=== PATIENT | female | born 1960 | race Caucasian/White ===

== ENCOUNTER → 2020-11-07 08:45 | Outpatient (CLI) | payer OTHER, SELFPAY ==
--- NOTE | ~2020-11-07 | CT_ITS ---
EXAMINATION: CT sinus wo con DATE: 11/07/2020 09:01 INDICATION: Deviated nasal septum TECHNIQUE: Computed tomography (CT) of the paranasal sinuses was performed without intravenous contra st. The dose-length product (DLP) was 288.85 mGy-cm. Iterative reconstruction was used. COMPARISON: None FINDINGS: There is normal development and pneumatization of the paranasal sinuses. There are 4.5 mm o f leftward deviation of the nasal septum. The frontal, sphenoid, ethmoid, and maxillary sinuses are c lear. The bilateral ostiomeatal complexes are patent. Visualized soft tissues are unremarkable. IMPRESSION: 1. 4.5 mm of leftward deviation of the nasal septum. Reviewed, dictated and finalized at location A.
== END ==
PROVIDERS: PCP Family Medicine; Visit Provider Physician Assistant Medical
DX: J34.2 Deviated nasal septum (principal)
CPT/HCPCS: 70486

== ENCOUNTER 2020-12-01 17:43 | Outpatient (CLI) | payer OTHER, SELFPAY ==
--- NOTE | ~2020-12-01 | MM_ITS ---
EXAMINATION: MM screening kavita BI w marvin HISTORY: Screening mammogram TECHNIQUE: Craniocaudal and mediolateral oblique 3-D tomosynthesis images were obtained and synthetic 2-D images were generated. CAD analysis was submitted and interpreted. COMPARISON: 09/16/2017, 09/12/2017, 01/28/2017, 01/17/2017 BREAST PARENCHYMAL COMPOSITION: The breasts are heterogeneously dense, which may obscure small masses . FINDINGS: RIGHT BREAST: Stable architectural distortion in the upper outer quadrant of the breast is consistent with prior excisional biopsy. There is no evidence of suspicious mass, calcification, or architectur al distortion to suggest malignancy. There has been no significant interval change. LEFT BREAST: An asymmetry is present in the anterior/middle third of the lower breast 6.5 cm from the nipple on the mediolateral oblique view. IMPRESSION: 1. Left breast asymmetry 2. Additional mammographic views and possible breast ultrasound are recommended. BI-RADS Category 0: Incomplete: Needs additional imaging evaluation. Reviewed, dictated and finalized at location A. IMPRESSION: 1. Left breast asymmetry 2. Additional mammographic views and possible breast ultrasound are recommended . BI-RADS Category 0: Incomplete: Needs additional imaging evaluation.
== END 2020-12-01 17:44 | disposition home or self-care (01) ==
LOC: ANHIMG 17:43
PROVIDERS: PCP Family Medicine; Visit Provider Obstetrics & Gynecology
DX: Z12.31 Encounter for screening mammogram for malignant neoplasm of breast (principal); R92.8 Other abnormal and inconclusive findings on diagnostic imaging of breast
CPT/HCPCS: 77063; 77067

== ENCOUNTER 2020-12-15 13:15 | Outpatient (CLI) | payer OTHER, SELFPAY ==
--- NOTE | ~2020-12-15 | MMUS_ITS ---
EXAMINATION: MM diagnostic mammo unilat LT, US breast LT complete HISTORY: Follow-up left breast asymmetry TECHNIQUE: Additional 3-D tomosynthesis images of the left breast were performed and synthetic 2-D im ages were generated. CAD analysis was submitted and interpreted. High resolution complete left breast ultrasound was performed. COMPARISON: Comparison to multiple prior studies sequentially, with oldest reviewed study dated 08/26. BREAST PARENCHYMAL COMPOSITION: The breasts are heterogenously dense, which may obscure small masses. FINDINGS: MAMMOGRAPHIC FINDINGS: There are no suspicious masses, calcifications or architectural distortion in the left breast to sugg est malignancy. ULTRASOUND: At 11:00, 6 cm from the nipple, there is a 3 mm cyst. No other discrete masses are identified. IMPRESSION: 1. No evidence for malignancy in the left breast. 2. Routine yearly screening mammogram and regular clinical breast examination are recommended. BI-RADS Category 2: Benign finding(s). Reviewed, dictated and finalized at location A. IMPRESSION: 1. No evidence for malignancy in the left breast. 2. Routine yearly screening mammogram and regular clinical breast examination a re recommended. BI-RADS Category 2: Benign finding(s).
== END 2020-12-15 13:16 | disposition home or self-care (01) ==
PROVIDERS: PCP Family Medicine; Visit Provider Obstetrics & Gynecology
DX: R92.8 Other abnormal and inconclusive findings on diagnostic imaging of breast (principal)
CPT/HCPCS: 76641; 77065

== ENCOUNTER 2022-09-26 01:09 | Day surgery (SDC) | payer OTHER, SELFPAY ==
--- NOTE | 2022-09-25 15:01 | PM.HPGS ---
History of Present Illness History of Present Illness Consent: Risks, benefits, and alternatives have been discussed and questions answered. Patient agrees to proceed with procedure. Chief complaint: neoplasm screening Narrative: Lin Kwan is a 62 year old female referred for colon cancer screening. I had seen her 5 years ago for dysphagia and she was found to have a Schatzki's ring. Review of Systems Review of Systems: All systems reviewed & are unremarkable except as noted in HPI and below PMFSH Past Medical History Medical History Adult BMI 37.0-37.9 kg/sq m BMI 32.0-32.9,adult Family History Family History Sibling Family history of coronary artery disease Father Family history of malignant neoplasm of urinary bladder Other Family history of arthritis Social History Social History Smoking status: Never smoker Alcohol intake: never Substance use: never Substance use type: does not use Living arrangements: with family Spiritual care concerns: No Meds Home Medications and Allergies Home Medications Medication Instructions Recorded Confirmed Type alprazolam 0.25 mg tablet (Xanax) 0.25 mg PO TID PRN anxiety #30 tabs 04/19/21 09/10/22 Rx levothyroxine 137 mcg tablet 137 mcg PO DAILY #30 tabs 06/26/22 09/10/22 Rx (Synthroid) liothyronine 5 mcg tablet 5 mcg PO BID 06/26/22 09/10/22 History omeprazole 40 mg capsule,delayed 40 mg PO DAILY #90 caps 06/26/22 09/10/22 Rx release escitalopram oxalate 20 mg tablet 20 mg PO DAILY #30 tabs 07/01/22 09/10/22 Rx (Lexapro) fluticasone propionate 50 2 spray intranasal BID PRN Allergy 09/10/22 09/10/22 History mcg/actuation nasal Symptoms spray,suspension (Flonase Allergy Relief) metformin 500 mg tablet,extended 500 mg PO DAILY 09/10/22 09/10/22 History release 24 hr Allergies Allergy/AdvReac Type Severity Reaction Status Date / Time aspirin Allergy Unknown Unknown Verified 09/26/22 09:19 SALICYLATES Allergy Unknown Hives / Uncoded 09/26/22 09:19 Red Face Exam Const: General: alert Orientation/consciousness: patient oriented x3 Resp: Auscultation: clear to auscultation bilaterally Cardio: Rhythm: regular rhythm GI: GI Palp: Yes Soft to palpation and No Tenderness to palpation present (GI) Neuro: General: patient oriented x3 Assessment and Plan Assessment and plan (1) Screening for colon cancer: Code(s): Z12.11 - Encounter for screening for malignant neoplasm of colon Status: Acute Assessment and Plan: Colonoscopy with possible biopsy or polypectomy or cautery or injection of substances.
[2022-09-26 09:20] VITALS: BP 134/73; PULSE 74; RESP 18; TEMP 36; O2SAT 100
[2022-09-26] MEDS: LACTATED RINGERS 1,000 ML 150 ML IV CONT (09:30)
--- NOTE | 2022-09-26 09:33 | P.PNAN_ITS ---
Anes - Initial Pre Proc Eval Procedure: Operation Date: 09/26/22 10:30 Proposed Procedures p Screening Colonoscopy - Nile Pedro MD Date/Time: 09/26/22 09:33 Surgeon: Nile Pedro MD Pre Op Diagnosis: neoplasm screening Patient Data Age: 62 Gender: F Height: 1.65 m Weight: 84.8 kg Last Vital Signs Temp 36.0 C L 09/26/22 09:20 Pulse 74 09/26/22 09:20 Resp 18 09/26/22 09:20 BP 134/73 09/26/22 09:20 Pulse Ox 100 09/26/22 09:20 O2 Del Method Room Air 09/26/22 09:20 Allergies Allergy/AdvReac Type Severity Reaction Status Date / Time aspirin Allergy Unknown Unknown Verified 09/26/22 09:19 SALICYLATES Allergy Unknown Hives / Uncoded 09/26/22 09:19 Red Face Home Medications Medication Instructions Recorded Confirmed Type alprazolam 0.25 mg tablet (Xanax) 0.25 mg PO TID PRN anxiety #30 tabs 04/19/21 09/10/22 Rx levothyroxine 137 mcg tablet 137 mcg PO DAILY #30 tabs 06/26/22 09/10/22 Rx (Synthroid) liothyronine 5 mcg tablet 5 mcg PO BID 06/26/22 09/10/22 History omeprazole 40 mg capsule,delayed 40 mg PO DAILY #90 caps 06/26/22 09/10/22 Rx release escitalopram oxalate 20 mg tablet 20 mg PO DAILY #30 tabs 07/01/22 09/10/22 Rx (Lexapro) fluticasone propionate 50 2 spray intranasal BID PRN Allergy 09/10/22 09/10/22 History mcg/actuation nasal Symptoms spray,suspension (Flonase Allergy Relief) metformin 500 mg tablet,extended 500 mg PO DAILY 09/10/22 09/10/22 History release 24 hr Patient hx anesthesia problems: none Family hx anesthesia problems: none Results Review: All pre-operative results and documents have been reviewed as part of the pre- operative evaluation. [facility] Past Medical History Medical History Adult BMI 37.0-37.9 kg/sq m BMI 32.0-32.9,adult Family History Family History Sibling Family history of coronary artery disease Father Family history of malignant neoplasm of urinary bladder Other Family history of arthritis Social History Social History Smoking status: Never smoker Alcohol intake: never Substance use: never Substance use type: does not use Living arrangements: with family Spiritual care concerns: No Anes - Eval Final PreProcedure Day of Procedure 09/26/22 09:33 Patient weight: obese Heart: regular rate and rhythm Lungs: clear to auscultation and normal air movement Airway: Mallampati scale class II Neurological: alert and oriented Last oral intake: >/= 8 hours ASA classification: III Emergent: no Anesthetic plan: proceed Anesthesia type and monitoring: general GIVS Results Review: All pre-operative results and documents have been reviewed as part of the pre- operative evaluation. Informed Consent: The patient's anesthetic plan and its attendant risks and benefits were discussed with the patient/family/POA. Questions were solicited and answers provided to the satisfaction of the patient/family/POA.
[2022-09-26 09:34] LABS: Glucose Point of Care 104 mg/dl (65-105)
[2022-09-26 10:02] VITALS: BP 121/74; PULSE 66; RESP 19; O2SAT 100
[2022-09-26 10:12] VITALS: BP 124/76; PULSE 64; RESP 16; O2SAT 100
[2022-09-26 10:22] VITALS: BP 138/89; PULSE 66; RESP 19; O2SAT 100
== END 2022-09-26 10:29 | disposition home or self-care (01) ==
PROVIDERS: PCP Family Medicine; Visit Provider Internal Medicine Gastroenterology
PROC: 0DJD8ZZ Inspection of Lower Intestinal Tract, Via Natural or Artificial Opening Endoscopic (ICD-10-PCS; CPT 45378; principal; 2022-09-26 10:30)
DX: Z12.11 Encounter for screening for malignant neoplasm of colon (principal); K64.8 Other hemorrhoids; K57.30 Diverticulosis of large intestine without perforation or abscess without bleeding; Z79.84 Long term (current) use of oral hypoglycemic drugs; E66.9 Obesity, unspecified; Z68.31 Body mass index [BMI] 31.0-31.9, adult
CPT/HCPCS: 45378; 82948; J2704; J7120

== ENCOUNTER 2023-02-05 09:27 | Emergency (ER) | payer OTHER, SELFPAY ==
[2023-02-05 09:27] VITALS: BP 157/96; PULSE 85; RESP 20; O2SAT 100
[2023-02-05 09:28] VITALS: BP 157/96; PULSE 85; RESP 20; TEMP 36.3; O2SAT 100
--- NOTE | 2023-02-05 09:35 | ED.GENADULT ---
HPI - General Adult General Chief complaint: Unspecified Stated complaint: Foreign Body in Throat/ Time Seen by Provider: 02/05/23 09:30 Source: patient and RN notes reviewed Mode of arrival: ambulatory Limitations: no limitations History of Present Illness HPI narrative: 63 y/o female with hx hiatal hernia presented for c/o piece of apple lodged in throat since 0800. States it feels like the piece is at the sternal notch area. Endorses water comes back up after swallowing normal amounts, but small sips stay down. States she has had this happen in the past with foods, but has always been able to get the food out. States she has attempted to induce vomiting and manually remove the apple without success. Denies seeking evaluation for the hiatal hernia. Does not have GI specialist. Denies abdominal pain, n/v/d/f/c. Patient is talking and maintaining secretions. Related Data Home Medications Medication Instructions Recorded Confirmed liothyronine 5 mcg tablet 5 mcg PO BID 06/26/22 02/05/23 fluticasone propionate 50 2 spray intranasal BID PRN Allergy 09/10/22 02/05/23 mcg/actuation nasal Symptoms spray,suspension (Flonase Allergy Relief) Allergies Allergy/AdvReac Type Severity Reaction Status Date / Time salicylates Allergy Intermediate Hives Verified 02/05/23 09:46 aspirin Allergy Unknown Unknown Verified 02/05/23 09:46 Review of Systems Review of Systems: CONSTITUTIONAL: Denies body aches, fever, chills ENT: Endorses lodged FB in throat; Denies rhinorrhea, congestion CARDIOVASCULAR: Denies chest pain, palpitations, or edema. RESPIRATORY: Denies cough or dyspnea. GASTROINTESTINAL: Denies abdominal pain, nausea, vomiting, diarrhea GENITOURINARY: Denies dysuria, hematuria, or CVA tenderness. SKIN: Denies rash, itching, or wounds. MUSCULOSKELETAL: Denies back pain, joint pain, or myalgia. NEUROLOGIC: Denies headache, numbness, tingling, or weakness. All systems reviewed & are unremarkable except as noted in HPI and below PMFSH Past Medical History Medical History Adult BMI 37.0-37.9 kg/sq m BMI 32.0-32.9,adult BMI greater than 30 Family History Family History Sibling Family history of coronary artery disease Father Family history of malignant neoplasm of urinary bladder Other Family history of arthritis Social History Social History Smoking status: Never smoker Alcohol intake: never Substance use: never Substance use type: does not use Living arrangements: with family Spiritual care concerns: No Comments At time of signature, I have reviewed and agree with nursing past medical, surgical, social and family history unless otherwise noted. Please see nursing chart for further information. There is no relevant family history pertinent to the presenting complaint Exam Narrative: GENERAL: Well-appearing, and in no acute distress. EYES: EOMI. Conjunctivae normal. ENT: Mucous membranes pink and moist. No visible FB in airway. Maintaining secretions. CHEST: No respiratory distress, no wheezing; Clear to auscultation. Speaking full sentences without difficulty. HEART: Regular rate and rhythm. No murmur appreciated. Normal peripheral pulses. ABDOMEN: abd soft, nondistended, normal active bowel sounds. Nontender abdomen. Spitting out clear liquid . EXTREMITIES: Normal range of motion. No edema. SKIN: Warm, dry, no rash. Capillary refill normal. Normal skin turgor. NEURO: No focal deficits. Alert and oriented x3. PSYCH: Normal affect. Course Course Emergency Course: Patient is aware of diagnosis, understands and agrees to treatment plan. Anticipatory guidance given. Patient agrees to follow-up as directed and is aware of reasons to seek care at the emergency department. Portions of this record may have bee
[2023-02-05 09:47] VITALS: BP 157/96; PULSE 85; RESP 20; TEMP 36.3; O2SAT 100
== END 2023-02-05 09:52 | disposition short-term general hospital (02) ==
PROVIDERS: Emergency Provider Nurse Practitioner Family
DX: R13.10 Dysphagia, unspecified (principal); K21.9 Gastro-esophageal reflux disease without esophagitis; E11.9 Type 2 diabetes mellitus without complications; F41.9 Anxiety disorder, unspecified
CPT/HCPCS: 99212; G0463

== ENCOUNTER 2023-02-05 10:29 | Emergency (ER) | payer OTHER, SELFPAY ==
[2023-02-05 10:47] VITALS: BP 131/82; PULSE 83; RESP 18; TEMP 36.3; O2SAT 100
--- NOTE | 2023-02-05 13:23 | PC.NURSE ---
patient's problem has resolved. states that she is able to drink and swallow without difficulty. denies vomiting. advised to return if needed. patient verbalized understanding
== END 2023-02-05 13:23 | disposition left against medical advice (07) ==
DX: Z53.21 Procedure and treatment not carried out due to patient leaving prior to being seen by health care provider (principal)
CPT/HCPCS: 99199

== ENCOUNTER 2023-05-06 00:14 | Day surgery (SDC) | payer OTHER, SELFPAY ==
[2023-04-22 15:08] VITALS: BMI 30.8
--- NOTE | 2023-05-03 10:38 | SUR.PREOP ---
Patient called regarding upcoming procedure. Reviewed preop instructions, appointment times, and procedure prep.
--- NOTE | 2023-05-06 07:20 | PM.HPGS ---
History of Present Illness History of Present Illness Consent: Risks, benefits, and alternatives have been discussed and questions answered. Patient agrees to proceed with procedure. Chief complaint: Diaphragmatic hernia,GERD Narrative: Lin Kwan is a 63 year old female Was having increasing difficulty swallowing. She in fact had a food bolus caught for a few hours recently. She had gone to an urgent care center where she was told that they could not help her. She finally got relief after having gone to the emergency room when it passed on its own. She did have an esophageal stricture which was dilated about 5 years ago. Review of Systems Review of Systems: All systems reviewed & are unremarkable except as noted in HPI and below PMFSH Past Medical History Medical History Adult BMI 37.0-37.9 kg/sq m BMI 32.0-32.9,adult BMI greater than 30 Family History Family History Sibling Family history of coronary artery disease Father Family history of malignant neoplasm of urinary bladder Other Family history of arthritis Social History Social History Smoking status: Never smoker Alcohol intake: never Substance use: never Substance use type: does not use Living arrangements: with family Spiritual care concerns: No Meds Home Medications and Allergies Home Medications Medication Instructions Recorded Confirmed Type alprazolam 0.25 mg tablet (Xanax) 0.25 mg PO TID PRN anxiety #30 tabs 04/19/21 05/06/23 Rx levothyroxine 137 mcg tablet 137 mcg PO DAILY #30 tabs 06/26/22 05/06/23 Rx (Synthroid) liothyronine 5 mcg tablet 5 mcg PO BID 06/26/22 05/06/23 History escitalopram oxalate 20 mg tablet 20 mg PO DAILY #30 tabs 07/01/22 05/06/23 Rx (Lexapro) fluticasone propionate 50 2 spray intranasal BID PRN Allergy 09/10/22 05/06/23 History mcg/actuation nasal Symptoms spray,suspension (Flonase Allergy Relief) omeprazole 40 mg capsule,delayed 40 mg PO DAILY #90 caps 02/19/23 05/06/23 Rx release cholecalciferol (vitamin D3) 25 25 mcg PO DAILY 04/22/23 05/06/23 History mcg (1,000 unit) tablet rosuvastatin 20 mg tablet (Crestor) 20 mg PO DAILY #30 tabs 05/04/23 05/06/23 Rx Allergies Allergy/AdvReac Type Severity Reaction Status Date / Time salicylates Allergy Intermediate Hives Verified 05/06/23 12:22 aspirin Allergy Unknown Unknown Verified 05/06/23 12:22 Exam Const: General: alert Orientation/consciousness: patient oriented x3 Resp: Auscultation: clear to auscultation bilaterally Cardio: Rhythm: regular rhythm GI: GI Palp: Yes Soft to palpation and No Tenderness to palpation present (GI) Neuro: General: patient oriented x3
[2023-05-06 12:15] VITALS: BP 139/80; PULSE 72; RESP 16; TEMP 36.9; O2SAT 100; BMI 32.9
--- NOTE | 2023-05-06 12:28 | WPDANESEPPF ---
Anes - Initial Pre Proc Eval Procedure: Operation Date: 05/06/23 13:30 Proposed Procedures p Esophagogastroduodenoscopy - Nile Pedro MD Date/Time: 05/06/23 12:28 Surgeon: Nile Pedro MD Pre Op Diagnosis: Diaphragmatic hernia,GERD Patient Data Age: 63 Gender: F Height: 1.65 m Weight: 89.8 kg Last Vital Signs Temp 98.4 F 05/06/23 12:15 Pulse 72 05/06/23 12:15 Resp 16 05/06/23 12:15 BP 139/80 05/06/23 12:15 Pulse Ox 100 05/06/23 12:15 O2 Del Method Room Air 05/06/23 12:15 Allergies Allergy/AdvReac Type Severity Reaction Status Date / Time salicylates Allergy Intermediate Hives Verified 05/06/23 12:22 aspirin Allergy Unknown Unknown Verified 05/06/23 12:22 Home Medications Medication Instructions Recorded Confirmed Type alprazolam 0.25 mg tablet (Xanax) 0.25 mg PO TID PRN anxiety #30 tabs 04/19/21 05/06/23 Rx levothyroxine 137 mcg tablet 137 mcg PO DAILY #30 tabs 06/26/22 05/06/23 Rx (Synthroid) liothyronine 5 mcg tablet 5 mcg PO BID 06/26/22 05/06/23 History escitalopram oxalate 20 mg tablet 20 mg PO DAILY #30 tabs 07/01/22 05/06/23 Rx (Lexapro) fluticasone propionate 50 2 spray intranasal BID PRN Allergy 09/10/22 05/06/23 History mcg/actuation nasal Symptoms spray,suspension (Flonase Allergy Relief) omeprazole 40 mg capsule,delayed 40 mg PO DAILY #90 caps 02/19/23 05/06/23 Rx release cholecalciferol (vitamin D3) 25 25 mcg PO DAILY 04/22/23 05/06/23 History mcg (1,000 unit) tablet rosuvastatin 20 mg tablet (Crestor) 20 mg PO DAILY #30 tabs 05/04/23 05/06/23 Rx Patient hx anesthesia problems: none Family hx anesthesia problems: none Results Review: All pre-operative results and documents have been reviewed as part of the pre-operative evaluation. [facility] Past Medical History Medical History Adult BMI 37.0-37.9 kg/sq m BMI 32.0-32.9,adult BMI greater than 30 Family History Family History Sibling Family history of coronary artery disease Father Family history of malignant neoplasm of urinary bladder Other Family history of arthritis Social History Social History Smoking status: Never smoker Alcohol intake: never Substance use: never Substance use type: does not use Living arrangements: with family Spiritual care concerns: No Anes - Eval Final PreProcedure Day of Procedure 05/06/23 12:28 Patient weight: normal Heart: regular rate and rhythm Lungs: clear to auscultation Airway: Mallampati scale class II Neurological: alert and oriented Last oral intake: >/= 8 hours ASA classification: III Emergent: no Anesthetic plan: proceed Anesthesia type and monitoring: general GIVS and standard monitoring Results Review: All pre-operative results and documents have been reviewed as part of the pre-operative evaluation. Informed Consent: The patient's anesthetic plan and its attendant risks and benefits were discussed with the patient/family/POA. Questions were solicited and answers provided to the satisfaction of the patient/family/POA.
[2023-05-06] MEDS: LACTATED RINGERS 1,000 ML 150 ML IV CONT (12:34)
[2023-05-06] MEDS: BENZOCAINE (*SP) 60 ML SPRAY CAN (HURRICAINE) 1 SPRAY MUCOUS MEM (13:05)
[2023-05-06 13:18] VITALS: BP 129/80; PULSE 80; RESP 20; O2SAT 100
[2023-05-06 13:28] VITALS: BP 125/71; BP 139/91; PULSE 72; PULSE 73; RESP 18; O2SAT 100
== END 2023-05-06 13:40 | disposition home or self-care (01) ==
PROVIDERS: PCP Family Medicine; Visit Provider Internal Medicine Gastroenterology
PROC: 0DJ08ZZ Inspection of Upper Intestinal Tract, Via Natural or Artificial Opening Endoscopic (ICD-10-PCS; CPT 43235; principal; 2023-05-06 13:30)
DX: K21.00 Gastro-esophageal reflux disease with esophagitis, without bleeding (principal); K22.2 Esophageal obstruction; Z80.52 Family history of malignant neoplasm of bladder; Z82.49 Family history of ischemic heart disease and other diseases of the circulatory system
CPT/HCPCS: 43249; 43239; 88305; C1726; J2704; J7120

== ENCOUNTER 2023-08-12 03:52 | Day surgery (SDC) | payer OTHER, SELFPAY ==
[2023-07-18 14:13] VITALS: BMI 31.8
--- NOTE | 2023-08-09 12:31 | SUR.PREOP ---
Patient called regarding upcoming procedure. Reviewed preop instructions, appointment times, and procedure prep.
--- NOTE | 2023-08-09 17:12 | PM.HPGS ---
History of Present Illness History of Present Illness Consent: Risks, benefits, and alternatives have been discussed and questions answered. Patient agrees to proceed with procedure. Chief complaint: Esophageal stricture, gastric polyp Narrative: Lin Kwan is a 63 year old female who a few months ago was found to have a severe esophageal stricture. It was after she had a food bolus impaction. She returns now for further treatment. Review of Systems Review of Systems: All systems reviewed & are unremarkable except as noted in HPI and below PMFSH Past Medical History Medical History Adult BMI 37.0-37.9 kg/sq m BMI 32.0-32.9,adult BMI greater than 30 Family History Family History Sibling Family history of coronary artery disease Father Family history of malignant neoplasm of urinary bladder Other Family history of arthritis Social History Social History Smoking status: Never smoker Alcohol intake: never Substance use: never Substance use type: does not use Living arrangements: with family Spiritual care concerns: No Meds Home Medications and Allergies Home Medications Medication Instructions Recorded Confirmed Type alprazolam 0.25 mg tablet (Xanax) 0.25 mg PO TID PRN anxiety #30 tabs 04/19/21 07/18/23 Rx levothyroxine 137 mcg tablet 137 mcg PO DAILY #30 tabs 06/26/22 07/18/23 Rx (Synthroid) liothyronine 5 mcg tablet 5 mcg PO BID 06/26/22 07/18/23 History escitalopram oxalate 20 mg tablet 20 mg PO DAILY #30 tabs 07/01/22 07/18/23 Rx (Lexapro) fluticasone propionate 50 2 spray intranasal BID PRN Allergy 09/10/22 07/18/23 History mcg/actuation nasal Symptoms spray,suspension (Flonase Allergy Relief) omeprazole 40 mg capsule,delayed 40 mg PO DAILY #90 caps 02/19/23 07/18/23 Rx release cholecalciferol (vitamin D3) 25 25 mcg PO DAILY 04/22/23 07/18/23 History mcg (1,000 unit) tablet rosuvastatin 20 mg tablet (Crestor) 20 mg PO DAILY #30 tabs 08/08/23 08/12/23 Rx Allergies Allergy/AdvReac Type Severity Reaction Status Date / Time salicylates Allergy Intermediate Hives Verified 08/12/23 08:55 aspirin Allergy Unknown Unknown Verified 08/12/23 08:55 Exam Const: General: alert Orientation/consciousness: patient oriented x3 Resp: Auscultation: clear to auscultation bilaterally Cardio: Rhythm: regular rhythm GI: GI Palp: Yes Soft to palpation and No Tenderness to palpation present (GI) Neuro: General: patient oriented x3 Assessment and Plan Assessment and plan (1) Schatzki's ring: Code(s): K22.2 - Esophageal obstruction Status: Acute Assessment and Plan: EGD with possible biopsy or dilatation or cautery.
[2023-08-12 08:56] VITALS: BP 140/83; PULSE 76; RESP 18; TEMP 36.3; O2SAT 100
[2023-08-12] MEDS: LACTATED RINGERS 1,000 ML 150 ML IV CONT (09:06)
--- NOTE | 2023-08-12 09:14 | P.PNAN_ITS ---
Anes - Initial Pre Proc Eval Procedure: Operation Date: 08/12/23 10:00 Proposed Procedures p Esophagogastroduodenoscopy - Nile Pedro MD Date/Time: 08/12/23 09:14 Surgeon: Nile Pedro MD Pre Op Diagnosis: Esophageal stricture, gastric polyp Patient Data Age: 63 Gender: F Height: 1.65 m Weight: 91.4 kg Last Vital Signs Temp 36.3 C L 08/12/23 08:56 Pulse 76 08/12/23 08:56 Resp 18 08/12/23 08:56 BP 140/83 08/12/23 08:56 Pulse Ox 100 08/12/23 08:56 O2 Del Method Room Air 08/12/23 08:56 Allergies Allergy/AdvReac Type Severity Reaction Status Date / Time salicylates Allergy Intermediate Hives Verified 08/12/23 08:55 aspirin Allergy Unknown Unknown Verified 08/12/23 08:55 Home Medications Medication Instructions Recorded Confirmed Type alprazolam 0.25 mg tablet (Xanax) 0.25 mg PO TID PRN anxiety #30 tabs 04/19/21 07/18/23 Rx levothyroxine 137 mcg tablet 137 mcg PO DAILY #30 tabs 06/26/22 07/18/23 Rx (Synthroid) liothyronine 5 mcg tablet 5 mcg PO BID 06/26/22 07/18/23 History escitalopram oxalate 20 mg tablet 20 mg PO DAILY #30 tabs 07/01/22 07/18/23 Rx (Lexapro) fluticasone propionate 50 2 spray intranasal BID PRN Allergy 09/10/22 07/18/23 History mcg/actuation nasal Symptoms spray,suspension (Flonase Allergy Relief) omeprazole 40 mg capsule,delayed 40 mg PO DAILY #90 caps 02/19/23 07/18/23 Rx release cholecalciferol (vitamin D3) 25 25 mcg PO DAILY 04/22/23 07/18/23 History mcg (1,000 unit) tablet rosuvastatin 20 mg tablet (Crestor) 20 mg PO DAILY #30 tabs 08/08/23 08/12/23 Rx Patient hx anesthesia problems: none Family hx anesthesia problems: none Results Review: All pre-operative results and documents have been reviewed as part of the pre- operative evaluation. COUNTS INCLUDE 234 BEDS AT THE [facility] Past Medical History Medical History Adult BMI 37.0-37.9 kg/sq m BMI 32.0-32.9,adult BMI greater than 30 Family History Family History Sibling Family history of coronary artery disease Father Family history of malignant neoplasm of urinary bladder Other Family history of arthritis Social History Social History Smoking status: Never smoker Alcohol intake: never Substance use: never Substance use type: does not use Living arrangements: with family Spiritual care concerns: No Anes - Eval Final PreProcedure Day of Procedure 08/12/23 09:14 Patient weight: obese Heart: regular rate and rhythm Lungs: clear to auscultation Airway: Mallampati scale class II Neurological: alert and oriented Last oral intake: >/= 8 hours ASA classification: III Emergent: no Anesthetic plan: proceed Anesthesia type and monitoring: general GIVS and standard monitoring Results Review: All pre-operative results and documents have been reviewed as part of the pre- operative evaluation. Informed Consent: The patient's anesthetic plan and its attendant risks and benefits were discussed with the patient/family/POA. Questions were solicited and answers provided to the satisfaction
[2023-08-12 10:00] VITALS: BP 114/68; PULSE 70; RESP 20; O2SAT 100
[2023-08-12 10:10] VITALS: BP 126/78; PULSE 67; RESP 17; O2SAT 100
[2023-08-12 10:20] VITALS: BP 140/86; PULSE 65; RESP 15; O2SAT 100
== END 2023-08-12 10:29 | disposition home or self-care (01) ==
PROVIDERS: PCP Family Medicine; Visit Provider Internal Medicine Gastroenterology
PROC: 0DJ08ZZ Inspection of Upper Intestinal Tract, Via Natural or Artificial Opening Endoscopic (ICD-10-PCS; CPT 43235; principal; 2023-08-12 10:00)
DX: K22.2 Esophageal obstruction (principal); K44.9 Diaphragmatic hernia without obstruction or gangrene; E66.9 Obesity, unspecified; Z68.33 Body mass index [BMI] 33.0-33.9, adult; Z82.49 Family history of ischemic heart disease and other diseases of the circulatory system; Z80.52 Family history of malignant neoplasm of bladder
CPT/HCPCS: 43249; 43255; C1726; J2704; J7120

== ENCOUNTER 2024-07-26 11:16 | Emergency (ER) | payer OTHER, SELFPAY ==
--- OUTSIDE RECORDS SUMMARY | 2024-07-26 11:18 | XMS_ITS | Clinical Summary ---
Author Organization [facility] [address] [place] Address [address] [place] [address] Care Team Providers Care Injection Molding Operator Name Role Phone Chao Nelson MD Primary Care Provider [phone] Dionna Kc MD Unavailable [phone] Ken Warner MD Unavailable [phone] Source Comments [facility],non-owned Affiliates and Associated Physician Practices is amultiple site organization consisting of ambulatory clinics and hospital sitesin [place], [place], [place] and [place]. This disclosure is being madepursuant to the Care Everywhere program and may not contain all information available regarding this patient. Last updated 18.[facility] [place] Allergies Active Allergy Reactions Criticality Noted Date Comments Aspirin Buffered 02/04/2012 Medications * Be aware that medications may not be up to date on this document. Alwaysverify current medications with the patient. Medication Sig Dispensed Refills Start Date End Date Status Multiple Vitamins-Minerals (MULTIVITAMIN & MINERAL PO) Take by mouth once daily. Active omeprazole (PRILOSEC) 40 MG capsule 2 06/30/2015 Active influenza quadrivalent vac (AFLURIA QUAD) 0.5 ML injection ADM 0.5ML IM UTD 0 04/17/2018 Active BOOSTRIX 5-2.5-18.5 LF-MCG/0.5 (7y+) injection ADM 0.5ML IM UTD 0 04/17/2018 Active RESTASIS 0.05 % ophthalmic suspension INSTILL 1 DROP INTO BOTH EYES BID 3 09/12/2018 Active ALPRAZolam (XANAX) 0.25 MG tablet TK 1 T PO TID PRF ANXIETY 09/16/2019 Active fluticasone propionate (FLONASE) 50 MCG/ACT nasal spray SHAKE LIQUID AND USE 2 SPRAYS IN EACH NOSTRIL TWICE DAILY 01/27/2021 Active b-complex-c capsule Take 1 (one) capsule by mouth once daily 02/09/2021 Active escitalopram (LEXAPRO) 20 MG tablet Take 20 mg by mouth once daily 01/27/2021 Active topiramate (Topamax) 25 MG tablet Take 2 (two) tablets by mouth once daily Take in the afternoon - evening hrs 180 tablet 3 05/01/2022 Active Cholecalciferol (Vitamin D3) 25 MCG (1000 UT) Take 1 (one) capsule by mouth once daily 90 capsule 3 10/15/2022 Active rosuvastatin (Crestor) 20 MG tablet Take 1 (one) tablet by mouth once daily 06/07/2023 Active levothyroxine (Synthroid) 137 MCG tabletIndications:H ypothyroidism Take 1 (one) tablet by mouth once daily Reasons: Underactive Thyroid 90 tablet 3 02/19/2024 Active Active Problems Problem Noted Date Diagnosed Date GERD (gastroesophageal reflux disease) 6 Pre-diabetes 08/31/2015 Dysphagia 08/23/2014 Weight gain 08/23/2014 Hypothyroidism, postablative 02/04/2012 Overview (08/31/2015): S/p SIMMS therapy 2002 Resolved Problems Problem Noted Date Diagnosed Date Resolved Date Diabetes mellitus type I 08/23/2016 Hyperthyroidism 02/04/2012 08/31/2015 Overview (02/04/2012): S/p SIMMS 131 therapy 2002 Hypothyroidism 01/23/2012 02/04/2012 Overview (03/17/2015): Family History Medical History Relation Name Comments Diabetes Daughter gestational Diabetes Father Neuropathy Father Arthritis - Rheumatoid Mother Cancer Mother blood Asthma Sister 2 CAD (Coronary Artery Disease) Neg Hx CVA Neg Hx Thyroid Disease Neg Hx Relation Name Status Comments Brother 1 Alive Brother 2 Alive Brother 3 Alive Daughter Father Mother Alive Sister 1 Alive Sister 2 Social History Tobacco Use Types Packs/Day Years Used Date Smoking Tobacco: Never Smokeless Tobacco: Never Tobacco Cessation:Counseling Given: Not Answered Alcohol Use Standard Drinks/Week Comments No 0 (1 standard drink = 0.6 oz pur e alcohol) Sex and Gender Information Value Date Recorded Sex Assigned at Not on file Gender Identity Not on file Sexual Orientation Not on file Last Filed Vital Signs Vital Sign Reading Time Taken Comments Blood Pressure 125/63 12/24/2022 2:25 PM CDT Pulse 82 05/01/2022 1:03 PM FITNESS PLAN COORDINATOR Temperature 36.4 C (97.5 F) 02/09/2021 9:33 AM CDT Respiratory Rate 20 02/09/2021 9:33 AM CDT Oxygen Saturation 97% 05/01/2022 1:03 PM FITNESS PLAN COORDINATOR Inhaled Oxygen Concentration - - Weight 88.9 kg (196 lb) 12/24/2022 2:25 PM CDT Height 165.1 cm (5' 5 ) 12/24/2022 2:25 PM CDT Body Mass Index 32.62 12/24/2022 2:25 PM CDT Plan of Treatment Upcoming Encounters Date Type Department Care Team (Late st Contact Info) Description 08/19/2024 1:40 PM FITNESS PLAN COORDINATOR Video Visit [facility] - Endocrinology [id number] [place] [address], [address] [place] [address] Dionna Kc MD [id number] [place] [address] [address] [place] [address] Health Maintenance Due Date Last Done Comments COLOGUARD (AGES 45-75) - COLON CA SCREENING 1962 COLON MONITORING 1962 COLONOSCOPY - COLON CA SCREENING 1962 CT COLONOGRAPHY - COLON CA SCREENING 1962 Colorectal Cancer Screening 1962 FIT - COLON CA SCREENING 1962 FLEX SIG - COLON CA SCREENING 1962 MAMMOGRAM 1962 HIV SCREENING 1977 HEPATITIS C SCREENING 01/07/1980 DTAP/TDAP/TD VACCINES (1 - Tdap) 1981 PNEUMOCOCCAL VACCINE 50+ (1 of 2 - PCV) 1981 PNEUMOCOCCAL VACCINE (1 of 2 - PCV) 1981 ZOSTER VACCINE (1 of 2) 01/12/2012 DIABETES-FOOT EXAM WITH MONOFILAMENT 08/30/2016 DIABETES-HGB A1C 12/26/2021 06/28/2021 Respiratory Syncytial Virus (RSV) Vaccine Pt: or over 60 yrs (1 - Risk 60-74 years 1-dose series) 2022 DIABETES-SERUM CREATININE 06/28/20222021, 01/12/2021, 11/27/2019, Additional history exists COVID-19 VACCINE ( season) 2024 INFLUENZA VACCINE (#1) 2024 DEPRESSION SCREENING 06/17/2024 DIABETES - URINE PROTEIN SCREENING 06/17/2024 06/28/2021 DIABETES RETINOPATHY SCREENING 06/28/2024 06/28/2022, 06/22/2021, 09/12/2018 HEPATITIS B VACCINE Aged Out No longe r eligible based on patient's age to complete this topic HIB VACCINE Aged Out No longer eligi ble based on patient's age to complete this topic HPV VACCINE Aged Out No longer eligi ble based on patient's age to complete this topic MENINGOCOCCAL (Group B) VACCINE Aged Out No longer eligible based on patient's age to complete this topic MENINGOCOCCAL VACCINE Aged Out No cass george eligible based on patient's age to complete this topic Procedures Procedure Name Priority Date/Time Associated Diagnosis Comments DIABETES EYE EXAM Routine 06/28/2022 MICROALB/CREAT RATIO URINE RANDOM PANEL 06/28/2021 7:18 AM FITNESS PLAN COORDINATOR COMPREHENSIVE METABOLIC PANEL 06/28/2021 7:18 AM FITNESS PLAN COORDINATOR HEMOGLOBIN A1C 06/28/2021 7:18 AM FITNESS PLAN COORDINATOR from Last 3 Months or Most Recently Relevant to Health Maintenance Results * DIABETES EYE EXAM (06/28/2022) Dionna Kc MD [facility] * MICROALB/CREAT RATIO URINE RANDOM PANEL (06/28/2021 7:18 AM FITNESS PLAN COORDINATOR) Creatinine Urine 134 20 - 275 mg/dL [facility] Microalbumin Urine 0.9 mg/dL [facility] Comment: Reference Range Not established Microalbumin/Creat inine Ratio 7 <30 mcg/mg creat [facility] Comment: The ADA defines abnormalities in albumin excretion as follows: Albuminuria Category Result (mcg/mg creatinine) Normal to Mildly increased <30 Moderately increased 30-299 Severely increased > OR = 300 The ADA recommends that at least two of three specimens collected within a 3-6 month period be abnormal before considering a patient to be within a diagnostic category. Test Performed at: [facility] [id number] [place] [address] EDGAR CLARK DO,MPH 06/28/2021 7:18 AM FITNESS PLAN COORDINATOR 06/28/2021 7:20 AM FITNESS PLAN COORDINATOR Dionna Kc MD LAB - URINE CHEM ISTRY ORDERABLES Performing Organization Address [facility] Co de Phone Number [address] [address] * (ABNORMAL) HEMOGLOBIN A1C (06/28/2021 7:18 AM FITNESS PLAN COORDINATOR) Hemoglobin A1c 5.9(H) <5.7 % of total Hgb [facility] Comment: REPORT COMMENT: FASTING:YES Test Performed at: [facility] [address] SARWAT ANGELES MD 06/28/2021 7:18 AM FITNESS PLAN COORDINATOR 06/28/2021 7:20 AM FITNESS PLAN COORDINATOR Dionna Kc MD LAB - CHEMISTRY ORDERABLES Performing Organization Address [facility] Co de Phone Number [address] [address] * (ABNORMAL) COMPREHENSIVE METABOLIC PANEL (06/28/2021 7:18 AM FITNESS PLAN COORDINATOR) Glucose 108(H) 65 - 99 mg/dL [facility] Comment: Fasting reference interval For someone without known diabetes, a glucose value between 100 and 125 mg/dL is consistent with prediabetes and should be confirmed with a follow-up test. BUN 18 7 - 25 mg/dL [facility] Creatinine 0.66 0.50 - 1.05 mg/dL [facility] Comment: For patients >49 years of age, the reference limit for Creatinine is approximately 13% higher for people identified as -Maltese. eGFR by MDRD 97 > OR = 60 mL/min/1 .73m2 [facility] eGFR by MDRD 112 > OR = 60 mL/min/1 .73m2 [facility] BUN/Creatinine Ratio NOT APPLICABLE 6 - 22 (calc) [facility] Sodium 141 135 - 146 mmol/L [facility] Potassium 4.3 3.5 - 5.3 mmol/L [facility] Chloride 104 98 - 110 mmol/L [facility] CO2 28 20 - 32 mmol/L [facility] Calcium 9.7 8.6 - 10.4 mg/dL [facility] Protein Total 6.6 6.1 - 8.1 g/dL [facility] Albumin 3.9 3.6 - 5.1 g/dL [facility] Globulin Total 2.7 1.9 - 3.7 g/dL (calc) [facility] Albumin/Globulin Ratio 1.4 1.0 - 2.5 (calc) [facility] Bilirubin Total 0.3 0.2 - 1.2 mg/dL [facility] Alkaline Phosphatase 74 37 - 153 U/L [facility] AST 11 10 - 35 U/L [facility] ALT 10 6 - 29 U/L [facility] Comment: Test Performed at: [facility] [address] [place] [address] EDGAR CLARK DO,MPH 06/28/2021 7:18 AM FITNESS PLAN COORDINATOR 06/28/2021 7:20 AM FITNESS PLAN COORDINATOR Dionna Kc MD LAB - CHEMISTRY ORDERABLES Performing Organization Address City/State/[facility] Co de Phone Number [facility] [address] [place] [address] from Last 3 Months or Most Recently Relevant to Health Maintenance Care Teams Injection Molding Operator Relationship Specialty Start Date End Date Chao Nelson MD [address] [place] [address] PCP - General 02/04/12 [place] [address] [address] Endocrinology 08/30/16 Ken Warner MD [address] [address] Obstetrics and Gynecology 05/27/19
--- OUTSIDE RECORDS SUMMARY | 2024-07-26 11:18 | XMS_ITS | Patient Health Summary ---
Author Organization [facility] Address [address] [place] [address] Care Team Providers Care Laser Beam Cutter Name Role Phone Chao Nelson MD Primary Care Provider [phone] Dionna Kc MD Unavailable [phone] Ken Warner MD Unavailable [phone] Note from [facility],non-owned Affiliates and Associated Physician Practices is amultiple site organization consisting of ambulatory clinics and hospital sitesin [place], [place], [place] and [place]. This disclosure is being madepursuant to the Care Everywhere program and may not contain all information available regarding this patient. Last updated 18.[facility] Allergies * Aspirin Buffered Medications * Be aware that medications may not be up to date on this document. Alwaysverify current medications with the patient. * Multiple Vitamins-Minerals (MULTIVITAMIN & MINERAL PO) Take by mouth once daily. * omeprazole (PRILOSEC) 40 MG capsule(Started 06/30/2015) 2 refills left * influenza quadrivalent vac (AFLURIA QUAD) 0.5 ML injection(Started 04/17/2018) ADM 0.5ML IM UTD * BOOSTRIX 5-2.5-18.5 LF-MCG/0.5 (7y+) injection(Started 04/17/2018) ADM 0.5ML IM UTD * RESTASIS 0.05 % ophthalmic suspension(Started 09/12/2018) INSTILL 1 DROP INTO BOTH EYES BID 3 refills left * ALPRAZolam (XANAX) 0.25 MG tablet(Started 09/16/2019) TK 1 T PO TID PRF ANXIETY * fluticasone propionate (FLONASE) 50 MCG/ACT nasal spray(Started 01/27/2021) SHAKE LIQUID AND USE 2 SPRAYS IN EACH NOSTRIL TWICE DAILY * b-complex-c capsule(Started 02/09/2021) Take 1 (one) capsule by mouth once daily * escitalopram (LEXAPRO) 20 MG tablet(Started 01/27/2021) Take 20 mg by mouth once daily * topiramate (Topamax) 25 MG tablet(Started 05/01/2022) Take 2 (two) tablets by mouth once daily Take in the afternoon - evening hrs 3 refills by 05/01/2023 * Cholecalciferol (Vitamin D3) 25 MCG (1000 UT)(Started 10/15/2022) Take 1 (one) capsule by mouth once daily 3 refills by 10/15/2023 * rosuvastatin (Crestor) 20 MG tablet(Started 06/07/2023) Take 1 (one) tablet by mouth once daily * levothyroxine (Synthroid) 137 MCG tablet(Started 02/19/2024) Take 1 (one) tablet by mouth once daily Reasons: Underactive Thyroid 3 refills by 02/18/2025 Active Problems Problem Noted Date Diagnosed Date GERD (gastroesophageal reflux disease) 6 Pre-diabetes 08/31/2015 Dysphagia 08/23/2014 Weight gain 08/23/2014 Hypothyroidism, postablative 02/04/2012 Resolved Problems Problem Noted Date Diagnosed Date Resolved Date Diabetes mellitus type I 08/23/2016 Hyperthyroidism 02/04/2012 08/31/2015 Hypothyroidism 01/23/2012 02/04/2012 Social History Tobacco Use Types Packs/Day Years [...] PM CDT Pulse 82 05/01/2022 1:03 PM CELL ROOM OPERATOR Temperature 36.4 C (97.5 F) 02/09/2021 9:33 AM CDT Respiratory Rate 20 02/09/2021 9:33 AM CDT Oxygen Saturation 97% 05/01/2022 1:03 PM CELL ROOM OPERATOR Inhaled Oxygen Concentration - - Weight 88.9 kg (196 lb) 12/24/2022 2:25 PM CDT Height 165.1 cm (5' 5 ) 12/24/2022 2:25 PM CDT Body Mass Index 32.62 12/24/2022 2:25 PM CDT Procedures * DIABETES EYE EXAM(Performed 06/28/2022) * HEMOGLOBIN A1C(Performed 06/28/2021) * TSH(Performed 06/28/2021) * T4 FREE(Performed 06/28/2021) * FRUCTOSAMINE(Performed 06/28/2021) * COMPREHENSIVE METABOLIC PANEL(Performed 06/28/2021) * MICROALB/CREAT RATIO URINE RANDOM PANEL(Performed 06/28/2021) * LIPID PROFILE(Performed 06/28/2021) * DIABETES EYE EXAM(Performed 06/22/2021) * TSH(Performed 01/12/2021) * T4 FREE(Performed 01/12/2021) * T3 TOTAL(Performed 01/12/2021) * COMPREHENSIVE METABOLIC PANEL(Performed 01/12/2021) * VITAMIN D 25-HYDROXY(Performed 11/27/2019) * TSH(Performed 11/27/2019) * T4 FREE(Performed 11/27/2019) * T3 TOTAL(Performed 11/27/2019) * BASIC METABOLIC PANEL (CALCIUM TOTAL)(Performed 11/27/2019) * VITAMIN D 25-HYDROXY(Performed 05/22/2019) * TSH(Performed 05/22/2019) * T4 TOTAL(Performed 05/22/2019) * T4 FREE(Performed 05/22/2019) * DIABETES EYE EXAM(Performed 09/12/2018) * COMPREHENSIVE METABOLIC PANEL(Performed 04/18/2018) Performed for Pre-diabetes, Hypothyroidism, postablative, Weight gain * T3 TOTAL(Performed 04/18/2018) Performed for Hypothyroidism, postablative * T4 FREE(Performed 04/18/2018) Performed for Hypothyroidism, postablative * TSH(Performed 04/18/2018) Performed for Hypothyroidism, postablative * C-PEPTIDE(Performed 09/30/2017) Performed for Pre-diabetes * COMPREHENSIVE METABOLIC PANEL(Performed 09/30/2017) Performed for Hypothyroidism, postablative, Pre-diabetes, Dysphagia, unspecified type, Weight gain * T3 TOTAL(Performed 09/30/2017) Performed for Hypothyroidism, postablative * T4 FREE(Performed 09/30/2017) Performed for Hypothyroidism, postablative * TSH(Performed 09/30/2017) Performed for Hypothyroidism, postablative * C-PEPTIDE(Performed 08/28/2016) Performed for Weight gain * T4 FREE(Performed 08/28/2016) Performed for Hypothyroidism, postablative, Weight gain * TSH(Performed 08/28/2016) Performed for Hypothyroidism, postablative, Weight gain * COMPREHENSIVE METABOLIC PANEL(Performed 08/28/2016) Performed for Hypothyroidism, postablative, Weight gain * LAB RESULTS ORDER(Performed 07/04/2015) * T3 TOTAL(Performed 01/15/2013) Performed for Unspecified Hypothyroidism * T4 FREE(Performed 01/15/2013) Performed for Unspecified Hypothyroidism * TSH(Performed 01/15/2013) Performed for Unspecified Hypothyroidism * TSH(Performed 10/16/2012) * T4 FREE(Performed 10/16/2012) * T3 TOTAL(Performed 10/16/2012) * T3 TOTAL(Performed 01/30/2012) Performed for Unspecified disorder of thyroid * T4 FREE(Performed 01/30/2012) Performed for Unspecified disorder of thyroid * TSH(Performed 01/30/2012) Performed for Unspecified disorder of thyroid Results * DIABETES EYE EXAM (06/28/2022) Only the most recent of3 resultswithin the time period is included. Dionna Kc MD [facility] * MICROALB/CREAT RATIO URINE RANDOM PANEL (06/28/2021 7:18 AM CELL ROOM OPERATOR) Creatinine Urine 134 20 - 275 mg/dL [...] within a diagnostic category. Test Performed at: [facility] [address] [place] [address] EDGAR CLARK DO,MPH 06/28/2021 7:18 AM CELL ROOM OPERATOR 06/28/2021 7:20 AM CELL ROOM OPERATOR Dionna Kc MD LAB - URINE CHEM ISTRY ORDERABLES Performing Organization Address [facility] de Phone Number [address] [address] * (ABNORMAL) HEMOGLOBIN A1C (06/28/2021 7:18 AM CELL ROOM OPERATOR) Pathologist [facility] Hemoglobin A1c 5.9(H) <5.7 % of total Hgb [facility] Comment: REPORT COMMENT: FASTING:YES Test Performed at: [address] [address] SARWAT ANGELES MD 06/28/2021 7:18 AM CELL ROOM OPERATOR 06/28/2021 7:20 AM CELL ROOM OPERATOR Dionna Kc MD LAB - CHEMISTRY ORDERABLES Performing Organization Address [facility] Co de Phone Number [address] [address] * (ABNORMAL) FRUCTOSAMINE (06/28/2021 7:18 AM CELL ROOM OPERATOR) Pathologist [facility] Fructosamine 200(L) 205 - 285 umol/L [facility] Comment: Test Performed at: [employer] [address] [place] [address] DINO ROSALES MD,PHD,KANDICE 06/28/2021 7:18 AM CELL ROOM OPERATOR 06/28/2021 7:20 AM CELL ROOM OPERATOR Dionna Kc MD LAB - CHEMISTRY ORDERABLES Performing Organization Address [facility] de Phone Number [address] [address] * (ABNORMAL) COMPREHENSIVE METABOLIC PANEL (06/28/2021 7:18 AM CELL ROOM OPERATOR) Only the most recent of5 resultswithin the time period is included. Glucose 108(H) 65 - 99 mg/dL [facility] [...] approximately 13% higher for people identified as -St Helenian. eGFR by MDRD 97 > OR = [...] 29 U/L [facility] Comment: Test Performed at: [place] [address] EDGAR CLARK DO,MPH 06/28/2021 7:18 AM CELL ROOM OPERATOR 06/28/2021 7:20 AM CELL ROOM OPERATOR Dionna Kc MD LAB - CHEMISTRY ORDERABLES [facility] [address] [place] [address] * TSH (06/28/2021 7:18 AM CELL ROOM OPERATOR) Only the most recent of10 resultswithin the time period is included. TSH 1.10 0.40 - 4.50 mIU/L [facility] Comment: Test Performed at: [employer] [facility] [employer] [address] EDGAR CLARK DO,MPH 06/28/2021 7:18 AM CELL ROOM OPERATOR 06/28/2021 7:20 AM CELL ROOM OPERATOR Dionna Kc MD LAB - CHEMISTRY ORDERABLES Performing Organization Address [facility] de Phone Number [facility] [address] [place] [address] * T4 FREE (06/28/2021 7:18 AM CELL ROOM OPERATOR) Only the most recent of10 resultswithin the time period is included. T4 Free 1.2 0.8 - 1.8 ng/dL [facility] Comment: Test Performed at: [facility] [address] [place] [address] EDGAR CLARK DO,MPH 06/28/2021 7:18 AM CELL ROOM OPERATOR 06/28/2021 7:20 AM CELL ROOM OPERATOR Dionna Kc MD LAB - CHEMISTRY ORDERABLES Performing Organization Address [facility] de Phone Number [facility] [address] [place] [address] * (ABNORMAL) LIPID PROFILE (06/28/2021 7:18 AM CELL ROOM OPERATOR) Cholesterol 192 <200 mg/dL [facility] HDL Cholesterol 54 > OR = 50 mg/dL [facility] Triglycerides 68 <150 mg/dL [facility] LDL Calculated 122(H) mg/dL (calc) [facility] Comment: Reference range: <100 Desirable range <100 mg/dL for primary prevention; <70 mg/dL for patients with CHD or diabetic patients with > or = 2 CHD risk factors. LDL-C is now calculated using the Malvin-Lizbeth calculation, which is a validated novel method providing better accuracy than the Friedewald equation in the estimation of LDL-C. Malvin SS et al. DELMI. 2013;310(19): 8170-1802 (http://education.[employer]iios.[employer]/faq/DZU056) CHOL/HDLC RATIO 3.6 <5.0 (calc) [facility] Non HDL Cholesterol 138(H) <130 mg/dL (calc) [facility] Comment: For patients with diabetes plus 1 major ASCVD risk factor, treating to a non-HDL-C goal of <100 mg/dL (LDL-C of <70 mg/dL) is considered a therapeutic option. Test Performed at: [facility] [place] [address] EDGAR CLARK DO,MPH 06/28/2021 7:18 AM CELL ROOM OPERATOR 06/28/2021 7:20 AM CELL ROOM OPERATOR Dionna Kc MD LAB - CHEMISTRY ORDERABLES Performing Organization Address [facility] de Phone Number [facility] [address] [place] [address] * T3 TOTAL (01/12/2021 7:11 AM CDT) Only the most recent of7 resultswithin the time period is included. [facility] T3 Total 137 76 - 181 ng/dL [facility] Comment: Test Performed at: [facility] [id number] [facility] [place] [address] EDGAR CLARK DO,MPH 01/12/2021 7:1 1 AM CDT 01/12/2021 7:13 AM CDT Dionna Kc MD LAB - CHEMISTRY ORDERABLES Performing Organization Address [facility] de Phone Number [place] [phone] [place] [address] * (ABNORMAL) VITAMIN D 25-HYDROXY (11/27/2019 11:25 AM CDT) Only the most recent of2 resultswithin the time period is included. [facility] Vitamin D, 25 Hydroxy 23(L) 30 - 100 ng/mL [facility] Comment: Vitamin D Status 25-OH Vitamin D: Deficiency: <20 ng/mL Insufficiency: 20 - 29 ng/mL Optimal: > or = 30 ng/mL For 25-OH Vitamin D testing on patients on D2-supplementation and patients for whom quantitation of D2 and D3 fractions is required, the QuestAssureD(TM) 25-OH VIT D, (D2,D3), LC/MS/MS is recommended: order code 96597 (patients >2yrs). See Note 1 Note 1 For additional information, please refer to http://education.Ziios.[employer]/faq/YIP558 (This link is being provided for informational/ educational purposes only.) Test Performed at: [facility] [address] [employer] [address] EDGAR CLARK DO,MPH 11/27/2019 11:2 5 AM CDT 11/27/2019 11:26 AM CDT Dionna Kc MD LAB - CHEMISTRY ORDERABLES Performing Organization Address [facility] Co de Phone Number [facility] [address] [place] [address] * (ABNORMAL) BASIC METABOLIC PANEL (CALCIUM TOTAL) (11/27/2019 11:25 AM CDT) Glucose 100(H) 65 - 99 mg/dL [facility] Comment: Fasting reference interval For someone without known diabetes, a glucose value between 100 and 125 mg/dL is consistent with prediabetes and should be confirmed with a follow-up test. BUN 13 7 - 25 mg/dL [facility] Creatinine 0.72 0.50 - 1.05 mg/dL [facility] Comment: For patients >49 years of age, the reference limit for Creatinine is approximately 13% higher for people identified as -St Helenian. eGFR by MDRD 93 > OR = 60 mL/min/1 .73m2 [facility] eGFR by MDRD 108 > OR = 60 mL/min/1 .73m2 [facility] BUN/Creatinine Ratio NOT APPLICABLE 6 - 22 (calc) [facility] Sodium 142 135 - 146 mmol/L [facility] Potassium 3.7 3.5 - 5.3 mmol/L [facility] Chloride 102 98 - 110 mmol/L [facility] CO2 32 20 - 32 mmol/L [facility] Calcium 9.3 8.6 - 10.4 mg/dL [facility] Comment: Test Performed at: [facility] [address] [employer], [employer] [address] EDGAR CLARK DO,MPH 11/27/2019 11:2 5 AM CDT 11/27/2019 11:26 AM CDT Dionna Kc MD LAB - CHEMISTRY ORDERABLES Performing Organization Address [facility]/ZIP Co de Phone Number [facility] [address] [place] [address] * T4 TOTAL (05/22/2019 10:53 AM CELL ROOM OPERATOR) Pathologist [facility] T4 Total 10.0 5.1 - 11.9 mcg/dL [facility] Comment: Test Performed at: [place] [address] EDGAR CLARK DO,MPH 05/22/2019 10:5 3 AM CELL ROOM OPERATOR 05/22/2019 10:55 AM CELL ROOM OPERATOR Dionna Kc MD LAB - CHEMISTRY ORDERABLES Performing Organization Address [facility] Co de Phone Number [facility] [address] [place] [address] * C-PEPTIDE (09/30/2017 7:26 AM CDT) Only the most recent of2 resultswithin the time period is included. [facility] C-Peptide 2.29 0.80 - 3.85 ng/mL [facility] Comment: Test Performed at: [facility] [address] EDGAR CLARK DO,MPH Blood BLOOD SPECIMEN / Unknown 09/30/2017 7:26 AM CDT 09/30/2017 7:28 AM CDT Dionna Kc MD LAB - CHEMISTRY ORDERABLES Performing Organization Address [facility] de Phone Number [facility] [address] [place] [address] * LAB RESULTS ORDER (07/04/2015) Historical Provider LAB - THERAPEUTIC DRUG MONITORING ORDERABLES Care Teams Laser Beam Cutter Relationship Specialty Start Date End Date Chao Nelson MD [address] [place] [phone] PCP - General 02/04/12 [place] [address] [facility] [address] [place] [address] Endocrinology 08/30/16 Ken Warner MD [address] [facility] [address] [address] Obstetrics and Gynecology 05/27/19
--- OUTSIDE RECORDS SUMMARY | 2024-07-26 11:18 | XMS_ITS | Continuity of Care Document ---
Author Organization [facility] Address [address] [place] [address] [address] [place] [address] Phone Care Team Providers Care Manager Program Name Role Phone Leeann Matthew Unavailable Unavailable Procedures Procedure Date Eye Exam, New Patient Advance Directives Directive Yes / No Effective Date File Name No Information Encounters Encounter Description Practice Location Reason(s) For Visit Diagnoses Date Provider Providers Copied on Encounter [facility], [address], [place], [place], [id number], [place] tel:[phone] [facility] No Information 8-200 [address] Tiff Bradshaw. [address] , [address], [place], [address], [place]. tel:[phone] Referring Provider: Chao Nelson MD F, [address] [place], [address]. tel:[phone] Family History Family Member Type Diagnosis Age [...]
--- OUTSIDE RECORDS SUMMARY | 2024-07-26 11:18 | XMS_ITS | Referral Summary ---
Author Organization [facility] Address [address] [facility] [place] [address] Care Team Providers Care Marble Installer Supervisor Name Role Phone Chao Nelson MD Primary Care Provider [phone] Dionna Kc MD Unavailable [phone] Ken Warner MD Unavailable Source Comments [facility],non-owned Affiliates and Associated Physician Practices is amultiple site organization consisting of ambulatory clinics and hospital sitesin [place], [place], [place] and [place]. This disclosure is being madepursuant to the Care Everywhere program and may not contain all information available regarding this patient. Last updated 18.[facility] Allergies Active Allergy Reactions Criticality Noted Date [...] therapy 2002 Hypothyroidism 01/23/2012 02/04/2012 Overview (03/17/2015): Social History Tobacco Use Types Packs/Day Years [...] PM CDT Pulse 82 05/01/2022 1:03 PM COMPANION Temperature 36.4 C (97.5 F) 02/09/2021 9:33 AM CDT Respiratory Rate 20 02/09/2021 9:33 AM CDT Oxygen Saturation 97% 05/01/2022 1:03 PM COMPANION Inhaled Oxygen Concentration - - Weight 88.9 kg (196 lb) 12/24/2022 2:25 PM CDT Height 165.1 cm (5' 5 ) 12/24/2022 2:25 PM CDT Body Mass Index 32.62 12/24/2022 2:25 PM CDT Plan of Treatment Upcoming Encounters Date Type Department Care Team (Late st Contact Info) Description 08/19/2024 1:40 PM COMPANION Video Visit [facility] Medical [facility] - Endocrinology [id number] [place] [address], [address] [place] [phone] [place]c [place] [id number] [place] [address] [address] [place] [address] Procedures Procedure Name Priority Date/Time Associated Diagnosis Comments DIABETES EYE EXAM Routine 06/28/2022 MICROALB/CREAT RATIO URINE RANDOM PANEL 06/28/2021 7:18 AM COMPANION COMPREHENSIVE METABOLIC PANEL 06/28/2021 7:18 AM COMPANION HEMOGLOBIN A1C 06/28/2021 7:18 AM COMPANION from Last 3 Months or Most Recently Relevant to Health Maintenance Results * DIABETES EYE EXAM (06/28/2022) Dionna Kc MD [facility] * MICROALB/CREAT RATIO URINE RANDOM PANEL (06/28/2021 7:18 AM COMPANION) Creatinine Urine 134 20 - 275 mg/dL [...] within a diagnostic category. Test Performed at: [facility] [place] [address] [place] [address] EDGAR CLARK DO,MPH 06/28/2021 7:18 AM COMPANION 06/28/2021 7:20 AM COMPANION Dionna Kc MD LAB - URINE CHEM ISTRY ORDERABLES Performing Organization Address [facility] Co de Phone Number [address] [address] * (ABNORMAL) HEMOGLOBIN A1C (06/28/2021 7:18 AM COMPANION) Hemoglobin A1c 5.9(H) <5.7 % of total Hgb [facility] Comment: REPORT COMMENT: FASTING:YES Test Performed at: [facility] [address] SARWAT ANGELES MD 06/28/2021 7:18 AM COMPANION 06/28/2021 7:20 AM COMPANION Dionna Kc MD LAB - CHEMISTRY ORDERABLES Performing Organization Address [facility] Co de Phone Number [address] [address] * (ABNORMAL) COMPREHENSIVE METABOLIC PANEL (06/28/2021 7:18 AM COMPANION) Glucose 108(H) 65 - 99 mg/dL [facility] [...] approximately 13% higher for people identified as -Bruneian. eGFR by MDRD 97 > OR = [...] 29 U/L [facility] Comment: Test Performed at: [employer] [address] [place] [address] EDGAR CLARK DO,MPH 06/28/2021 7:18 AM COMPANION 06/28/2021 7:20 AM COMPANION Dionna Kc MD LAB - CHEMISTRY ORDERABLES Performing Organization Address City/State/[facility] Co de Phone Number [facility] [address] [place] [address] from Last 3 Months or Most Recently Relevant to Health Maintenance Care Teams Marble Installer Supervisor Relationship Specialty Start Date End Date Chao Nelson MD [address] [place] [address] PCP - General 02/04/12 [place] [address] [place] [phone] Endocrinology 08/30/16 Ken Warner MD [address] [address] Obstetrics and Gynecology 05/27/19
--- OUTSIDE RECORDS SUMMARY | 2024-07-26 11:19 | XMS_ITS | Continuity of Care Document ---
Author Organization [facility] Address [address] [place] [address] [address] [place] [address] Phone Care Team Providers Care Charge Authorizer Name Role Phone Leeann Matthew Unavailable Unavailable Procedures Procedure Date Eye Exam, New Patient Advance Directives Directive Yes / No Effective Date File Name No Information Encounters Encounter Description Practice Location Reason(s) For Visit Diagnoses Date Provider Providers Copied on Encounter [facility], [address], [place], [place], [id number], [place] tel:[phone] [facility] No Information 8-200 8 Tiff Bradshaw. [address] , [address], [place], [address], [place]. tel:[phone] Referring Provider: Chao Nelson MD F, [address] [place], [address]. tel:[phone] Family History Family Member Type Diagnosis Age [...]
[2024-07-26 11:22] VITALS: BP 134/75; PULSE 82; RESP 18; TEMP 38.2; O2SAT 97
--- NOTE | 2024-07-26 11:27 | ED.URI ---
HPI - URI/Sore Throat General Chief Complaint: Upper Respiratory Infection Stated Complaint: cough/headache/ears Time Seen by Provider: 07/26/24 11:27 Source: patient, RN notes reviewed and old records reviewed Mode of arrival: ambulatory Limitations: no limitations History of Present Illness HPI Narrative: Patient whose has been tested positive for influenza on Saturday presents with complaints of flu-like symptoms that began on Saturday. She has been taking eoyw-oeg-ogthrnm medication for her symptoms. She reports moderate relief. She is not in any distress. She declines any COVID her flu testing today Related Data Home Medications ?Medication ?Instructions ?Recorded ?Confirmed ?Last Taken ?Type cholecalciferol (vitamin D3) 25 25 mcg PO DAILY 04/22/23 08/14/23 08/11/23 History mcg (1,000 unit) tablet Allergies Allergy/AdvReac Type Severity Reaction Status Date / Time salicylates Allergy Intermediate Hives Verified 08/14/23 07:53 aspirin Allergy Unknown Unknown Verified 08/14/23 07:53 Review of Systems Review of Systems: All systems reviewed & are unremarkable except as noted in HPI and below Constitutional: Constitutional: Reports no additional constitutional complaints, Reports body ache(s), Reports chills, Reports fever(s), Reports lethargy and Reports poor appetite ENT: Reports system reviewed and no additional complaints, except as documented, Reports nasal congestion and Reports nasal discharge Cardiovascular: Cardiovascular: Reports no additional cardiovascular complaints Respiratory: Respiratory: Reports no additional respiratory complaints and Reports cough Gastrointestinal: Gastrointestinal: Reports no additional gastrointestinal complaints PMFSH Past Medical History Medical History BMI greater than 30 BMI 32.0-32.9,adult Adult BMI 37.0-37.9 kg/sq m Family History Family History Sibling Family history of coronary artery disease Father Family history of malignant neoplasm of urinary bladder Other Family history of arthritis Social History Social History Smoking status: Never smoker Alcohol intake: never Substance use: never Substance use type: does not use Do You Feel Safe in your Home?: Yes Lack of Transportation: No Lack of Food: Never True Current Housing: I Have Housing Concerned About Future Housing: No Difficulty Paying Gas/Electric Bills: No Difficulty Paying for Meds: No Currently Unemployed: No Education: High School Diploma/GED Difficulty w/ Childcare or Family Care: No Living arrangements: with family Occupation/Education: occupation Gender identity (if verbalized by the patient): Female Spiritual care concerns: No Comments At the time of my signature, I reviewed and agree with the nursing past medical, surgical, social, and family history. There is no relevant family history pertinent to the patient complaint. Exam Const: General: cooperative, no acute distress, alert and awake Orientation/consciousness: oriented to person, oriented to place and oriented to time HENMT: Head: normal to inspection Ears: TM's normal bilaterally Resp: Effort & Inspection: normal respiratory effort and able to speak in complete sentences Auscultation: clear to auscultation bilaterally, no crackles, no rales, no rhonchi and no wheezes Cardio: Palpation: normal PMI Rate: regular rate Rhythm: regular rhythm Heart sounds: S1 normal heart sound present and S2 normal heart sound present Neuro: General: oriented to person, oriented to place and oriented to time Cranial nerves: Yes CN's II-XII intact bilaterally Psych: Appearance: grossly normal Thought process: Normal thought process present Insight: Good insight present (Psych) Judgement: Good judgement present (Psych) Course Course Level of Care: Express Care Visit Vital Signs Vital signs: Vital Signs Temperature 100.7 F H 07/26/24 11:22 Pulse Rate 82 07/26/24 11:22 Respiratory Rate 18 07/26/24 11:22 Blood Pressure 134/75 07/26/24 11:22 Pulse Oximetry 97 07/26/24 11:22 Oxygen Delivery Room Air 07/26/24 11:22 Temperature 100.7 F H 07/26/24 11:22 Pulse Rate 82 07/26/24 11:22 Respiratory Rate 18 07/26/24 11:22 Blood Pressure 134/75 07/26/24 11:22 Pulse Oximetry 97 07/26/24 11:22 Oxygen Delivery Room Air 07/26/24 11:22 Reviewed MDM - URI/Sore Throat MDM Narrative Medical decision making narrative: patient whose tested positive for flu began with flu-like symptoms on Saturday. She declines any flu or COVID testing today. She is advised that most likely her symptoms are product of the flu. She is advised to treat symptoms. Emergency department precautions discussed. Discharge instructions reviewed with patient, as well as provided in writing per nursing staff. The instructions also include specific and strict return/GO TO THE ER as well as f/u information. All questions have been answered, and the patient deny any further questions with discharge and discharge plan. Some parts of this dictation were generated by voice recognition software and may contain typographical and/or grammatical inaccuracies. Differential Diagnosis Differential diagnosis: Likely upper respiratory infection, otitis media, viral infection and influenza Medical Records Attestation: I reviewed the patient's medical records. Discharge Plan Discharge Clinical Impression: Upper respiratory infection Qualifiers: URI type: unspecified viral URI Qualified Code(s): J06.9 - Acute upper respiratory infection, unspecified Patient Disposition: Home, Self-Care Condition: Stable Instructions: Antibiotic Form Additional Instructions: Use czqi-zxa-zeqywru medications to treat your symptoms. Follow with primary care provider. Emergency department for new or worse symptoms Patient Language: Burundian Prescriptions: No Action levothyroxine [Synthroid] 137 mcg tablet 137 mcg PO DAILY Qty: 30 2RF alprazolam [Xanax] 0.25 mg tablet 0.25 mg PO TID PRN (Reason: anxiety) Qty: 30 0RF cholecalciferol (vitamin D3) 25 mcg (1,000 unit) tablet 25 mcg PO DAILY escitalopram oxalate [Lexapro] 20 mg tablet 20 mg PO DAILY Qty: 30 2RF rosuvastatin [Crestor] 20 mg tablet 20 mg PO DAILY Qty: 90 2RF Follow-up/Referrals: Chao Nelson MD [Primary Care Provider] - 2 Weeks Time of Disposition: 11:44
== END 2024-07-26 11:53 | disposition home or self-care (01) ==
PROVIDERS: Emergency Provider Nurse Practitioner Family; PCP Family Medicine
DX: J06.9 Acute upper respiratory infection, unspecified (principal)
CPT/HCPCS: 99211; G0463

== ENCOUNTER 2025-05-01 09:20 | Emergency (ER) | payer OTHER, SELFPAY ==
--- OUTSIDE RECORDS SUMMARY | 2007-09-23 09:52 | XMS_ITS | Continuity of Care Document ---
Author Organization [facility] Address [address] [place] [address] [address] [place] [address] Phone Care Team Providers Care It Operations Manager Name Role Phone Leeann Matthew Unavailable Unavailable Procedures Procedure Date Eye Exam, New Patient Advance Directives Directive Yes / No Effective Date File Name No Information Encounters Encounter Description Practice Location Reason(s) For Visit Diagnoses Date Provider Providers Copied on Encounter [facility], [address], [place], [place], [id number], [place] tel:[phone] [facility] No Information 8-[address] Tiff Bradshaw. [address] , [address], [place], [address], [place]. tel:[phone] Referring Provider: Chao Nelson MD F, [address] [place], [address]. tel:[phone] Family History Family Member Type Diagnosis Age At Onset No Information Payers Payer name Insurance type Covered green party ID Authoriza tion(s) No Information Social History Type Description Quantity Date Captured Comments Sex Female Smoking Status No Information Chief Complaint And Reason For Visit No Information Reason For Referral Reason For Referral No Information History Of Present Illness Encounter Date Complaint History Of Prese nt Illness No Information Functional Status Date Functional Assessmen t No Information Instructions Date Instruction Additional Infor mation No Information Assessments Type Assessment Date No Information Patient Care Teams Name Effective Dates (start - stop) Status Members No Information
--- OUTSIDE RECORDS SUMMARY | 2007-09-23 09:52 | XMS_ITS | Continuity of Care Document ---
Author Organization [facility] Address [address] [place] [address] [address] [place] [address] Phone Care Team Providers Care Artificial Stone Applicator Name Role Phone Leeann Matthew Unavailable Unavailable Procedures Procedure Date Eye Exam, New Patient Advance Directives Directive Yes / No Effective Date File Name No Information Encounters Encounter Description Practice Location Reason(s) For Visit Diagnoses Date Provider Providers Copied on Encounter [facility], [address], [place], [place], [id number], [place] tel:[phone] [facility] No Information 8-[address] Tiff Bradshaw. [address] , [address], [place], [address], [place]. tel:[phone] Referring Provider: Chao Nelson MD F, [address] [place], [address]. tel:[phone] Family History Family Member Type Diagnosis Age At Onset No Information Payers Payer name Insurance type Covered democrat ID Authoriza tion(s) No Information Social History [...]
--- OUTSIDE RECORDS SUMMARY | 2007-09-23 09:52 | XMS_ITS | Continuity of Care Document ---
Author Organization [facility] Address [address] [place] [address] [address] [place] [address] Phone Care Team Providers Care Global Creative Chairman Name Role Phone Leeann Matthew Unavailable Unavailable Procedures Procedure Date Eye Exam, New Patient Advance Directives Directive Yes / No Effective Date File Name No Information Encounters Encounter Description Practice Location Reason(s) For Visit Diagnoses Date Provider Providers Copied on Encounter [facility], [address], [place], [place], [id number], [place] tel:[phone] [facility] No Information 8-200 8 Tiff Bradshaw. [address] [facility] , [address], [place], [address], [place]. tel:[phone] Referring Provider: Chao Nelson MD F, [address] [place], [address]. tel:[phone] Family History Family Member Type Diagnosis Age At Onset No Information Payers Payer name Insurance type Covered alliance party ID Authoriza tion(s) No Information Social [...]
[2025-05-01] VITALS (16 sets, daily range): BP systolic 130–156; BP diastolic 71–117; PULSE 72–81; RESP 14–20; TEMP 36.6; O2SAT 96–98
--- NOTE | 2025-05-01 | CONSULT_PTH ---
PATIENT: Lin Kwan LOC: [facility]#:[id number] AGE/SX: 65/F ROOM: RE05/01/[address]: Manuel Salter DO : 1960 BED: DIS: 05/01/2025 SPEC #: [id number] RECD: 05/01/25 15:43 STATUS: YESSENIA REQ #: [id number] BEREKET: 05/01/25 00:[address]: Manuel Salter DEPT: [facility] Consult RECD BY: Rebecca Sandoval MLT, ([facility]) ENTERED: 05/01/25 15:43 SP TYPE: Consult OTHR DR: Chao Nelson MD Tissues: A - Peripheral Smear Procedures: Hematology Consult
--- NOTE | 2025-05-01 09:30 | ECG_ITS ---
Test Date: 2025-05-01 09:34:15 Measurements Intervals [place] Rate: 73 P: 30 WI: 145 QRS: -37 QRSD: 97 T: -2 QT: 375 QTc: 415 Interpretive Statements SINUS RHYTHM LEFT AXIS DEVIATION [QRS AXIS < -30] RSR' IN V1 OR V2, RIGHT VCD OR RVH No previous ECG available for comparison Electronically Signed On 05-03-2025 12:10:06 [facility]NER by Jaleel Mcucllough M.D.
--- NOTE | 2025-05-01 09:32 | ED_ITS ---
HPI - General Adult General Chief complaint: Recheck/Abnormal Lab/Rx Stated complaint: abnormal labs; low hemoglobin Time Seen by Provider: 05/01/25 09:23 History of Present Illness HPI narrative: Lin is a 65F with a PMH of low Mg, vitamin D deficiency, diverticulitis, DMII, HLD, Hypothyroidism, and anxiety that was referred to the ED from her primary care office for a low Hgb. She reports that she has been weak for a long time. She had labs done on 04/20 that showed a Hgb of 7.6 low iron and vitamin D, and they were done 10 days later with a Hgb of 6.7 as well as low iron. She started iron supplementation 3 days before the second set of labs. She did have a black BM today but she has been on iron. Related Data Allergies Allergy/AdvReac Type Severity Reaction Status Date / Time salicylates Allergy Intermediate Hives Verified 04/28/25 15:42 aspirin Allergy Unknown Unknown Verified 04/28/25 15:42 Review of Systems 2 Review of Systems: All systems reviewed & are unremarkable except as noted in HPI and below PMFSH Past Medical History Medical History Vitamin D deficiency Hypomagnesemia Anemia, folate deficiency Iron deficiency anemia Fatigue BMI greater than 30 BMI 32.0-32.9,adult Adult BMI 37.0-37.9 kg/sq m Family History Family History Sibling Family history of coronary artery disease Father Family history of malignant neoplasm of urinary bladder Other Family history of arthritis Social History Social History Smoking status: Never smoker Alcohol intake: never Substance use: never Substance use type: does not use Do You Feel Safe in your Home?: Yes Lack of Transportation: No Lack of Food: Never True Current Housing: I Have Housing Concerned About Future Housing: No Difficulty Paying Gas/Electric Bills: No Difficulty Paying for Meds: No Currently Unemployed: No Education: High School Diploma/GED Difficulty w/ Childcare or Family Care: No Living arrangements: with family Occupation/Education: occupation Gender identity (if verbalized by the patient): Female Spiritual care concerns: No Exam 2 Const: General: cooperative, healthy appearing, comfortable, no acute distress, well developed, alert, awake and Physically active O rientation/consciousness: oriented to person, oriented to place and oriented to time HENMT: Head: normal to inspection, normocephalic and atraumatic Ears: h earing grossly normal bilaterally and external ears normal Face/Nose/Sinus: N ormal external nose present Eyes: General: appearance normal, both eyes and all related structures P eriorbital: periorbital findings normal Sclera: sclerae normal Pupils: E qual, round and reactive pupils present Neck: Neck: normal visual inspection Chest: Chest palpation & inspection: normal inspection of the chest Resp: Effort & Inspection: normal respiratory effort, able to speak in complete sentences and no respiratory distress Auscultation: clear to auscultation bilaterally Cardio: Jugular venous distension: no JVD Rate: regular rate Rhythm: r egular rhythm GI: Inspection: normal to inspection GI Palp: Yes Soft to palpation A uscultation: normal bowel sounds Skin: General skin exam: normal color and no rashes or lesions noted Neuro: General: oriented to person, oriented to place and oriented to time Cranial nerves: Yes Equal, round and reactive pupils present Extrem: General: normal to inspection Course Course Emergency Course: Ordered labs EKG showed NSR with a rate of 73, LAD but no ST elevation/depression Hgb 7.2 with no active bleeding. Will discharge to f/u with PCP Vital Signs Vital signs: Vital Signs Temperature 97.9 F 05/01/25 09:20 Pulse Rate 78 05/01/25 09:20 Respiratory Rate 16 05/01/25 09:20 Blood Pressure 154/84 H 05/01/25 09:20 Pulse Oximetry 98 05/01/25 09:20 Oxygen Delivery Room Air 05/01/25 09:20 Temperature 97.9 F 05/01/25 09:20 Pulse Rate 75 05/01/25 11:01 Respiratory Rate 19 05/01/25 11:01 Blood Pressure 144/71 H 05/01/25 11:01 Pulse Oximetry 96 05/01/25 11:01 Oxygen Delivery Room Air 05/01/25 11:01 Medical Decision Making Vital Signs Vital Signs: Vital Signs Temperature 97.9 F 05/01/25 09:20 Pulse Rate 78 05/01/25 09:20 Respiratory Rate 16 05/01/25 09:20 Blood Pressure 154/84 H 05/01/25 09:20 Pulse Oximetry 98 05/01/25 09:20 Oxygen Delivery Room Air 05/01/25 09:20 Temperature 97.9 F 05/01/25 09:20 Pulse Rate 75 05/01/25 11:01 Respiratory Rate 19 05/01/25 11:01 Blood Pressure 144/71 H 05/01/25 11:01 Pulse Oximetry 96 05/01/25 11:01 Oxygen Delivery Room Air 05/01/25 11:01 Lab Data 05/01/25 09:51 05/01/25 09:51 Labs: Lab Results 05/01/25 Range/Units 09:51 WBC 7.3 (4.8-10.8) K/mm3 RBC 4.33 (4.20-5.40) M/mm3 Hgb 7.2 L (12.0-15.0) g/dL Hct 27.5 L (35.0-49.0) % MCV 63.5 L (78.0-102.0) fL MCH 16.6 L (27.0-31.0) pg MCHC 26.2 L (32-36) g/dL RDW 20.4 H (11.6-14.4) % Plt Count 580 H (150-420) K/mm3 MPV 8.6 L (9.2-11.8) fl Immature Gran % (Auto) 0.4 H (0.0-0.0) % Neut % (Auto) 58.2 (50.0-70.0) % Lymph % (Auto) 28.6 (18.0-42.0) % [place] % (Auto) 6.8 (2.0-11.0) % Eos % (Auto) 4.3 (1.0-6.0) % Baso % (Auto) 1.7 H (0.0-1.0) % Lymph # (Auto) 2.07 (1.10-4.50) K/mm3 [place] # (Auto) 0.49 (0.10-0.90) K/mm3 Eos # (Auto) 0.31 (0.02-0.50) K/mm3 Baso # (Auto) 0.12 H (0.00-0.10) K/mm3 Abs Immat Gran (auto) 0.03 H (0.00-0.00) K/mm3 Absolute Neuts (auto) 4.23 (1.70-7.20) K/mm3 Absolute Nucleated RBC 0.00 (0.00-0.00) K/mm3 Nucleated RBC % 0.0 (0-0.0) % % Immature Plt Fraction 1.1 (1.0-7.0) % PT 10.5 (9.50-12.1) Seconds INR 0.9 Sodium 144 (137-145) mmol/L Potassium 3.5 (3.4-5.0) mmol/L Chloride 107 (98-107) mmol/L Carbon Dioxide 29 (22-30) mmol/L Anion Gap 8 (4-12) mmol/L BUN 14 (7-17) mg/dL Creatinine 0.77 (0.7-1.0) mg/dL Estim Creat Clear Calc 70 ml/min Estimated GFR > 60 (59 - ) Glucose 107 (65-110) mg/dL Calculated Osmolality 298 H (285-295) mOsm/kg Calcium 9.7 (8.4-10.2) mg/dL Total Bilirubin 1.2 (0.2-1.3) mg/dL AST 24 (14-36) U/L ALT 14 (6-35) U/L Alkaline Phosphatase 88 (38-126) U/L Total Protein 7.0 (6.3-8.2) g/dL Albumin 4.3 (3.5-5.1) g/dL Discharge Plan Discharge Clinical Impression: Iron deficiency anemia Patient Disposition: Home Condition: Stable Instructions: Anemia (ED) Patient Language: Swedish Prescriptions: No Action omeprazole 40 mg capsule,delayed release(DR/EC) 40 mg PO DAILY Qty: 30 6RF cholecalciferol (vitamin D3) 125 mcg (5,000 unit) capsule 125 mcg PO DAILY Qty: 30 3RF magnesium oxide 300 mg magnesium tablet 300 mg PO DAILY Qty: 30 1RF famotidine [Pepcid] 40 mg tablet 40 mg PO DAILY PRN (Reason: worsening GERD) Qty: 30 1RF Rx Instructions: Ok to take PRN if Omeprazole is not controlling symptoms well. Pt. is to f/u with GI. levothyroxine [Synthroid] 137 mcg tablet 137 mcg PO DAILY Qty: 30 2RF hydrocortisone acetate [Anusol-HC] 25 mg suppository 25 mg RECTAL BID Qty: 24 0RF rosuvastatin [Crestor] 20 mg tablet 20 mg PO DAILY Qty: 90 2RF alprazolam [Xanax] 0.25 mg tablet 0.25 mg PO TID PRN (Reason: anxiety) Qty: 30 0RF escitalopram oxalate [Lexapro] 20 mg tablet 20 mg PO DAILY Qty: 90 2RF ferrous sulfate 325 mg (65 mg iron) tablet,delayed release (DR/EC) 325 mg PO DAILY Qty: 30 2RF folic acid 1 mg tablet 1 mg PO DAILY Qty: 14 0RF Follow-up/Referrals: Chao Nelson MD [Primary Care Provider, Family Practice]
[2025-05-01 09:59] LABS: Hematocrit 27.5 % (35.0-49.0); Hemoglobin 7.2 g/dL (12.0-15.0); Immature Granulocyte Percent A 0.4 % (0.0-0.0); Immature Platelet Fraction Pct 1.1 % (1.0-7.0); Lymphocytes Absolute Auto 2.07 K/mm3 (1.10-4.50); Mean Corpuscular HGB Conc 26.2 g/dL (32-36); Mean Corpuscular Hemoglobin 16.6 pg (27.0-31.0); Mean Corpuscular Volume 63.5 fL (78.0-102.0); Nucleated Red Blood Cells Absolute Auto 0.00 K/mm3 (0.00-0.00); Nucleated Red Blood Cells Perc 0.0 % (0-0.0); Platelet Count Result 580 K/mm3 (150-420); Red Blood Count 4.33 M/mm3 (4.20-5.40); White Blood Count 7.3 K/mm3 (4.8-10.8)
--- OUTSIDE RECORDS SUMMARY | 2025-05-01 10:13 | XMS_ITS | Clinical Summary ---
Author Organization [facility] Address [address] [place] [address] Care Team Providers Care Classroom Teacher Name Role Phone Chao Nelson MD Primary Care Provider [phone] Dionna Kc MD Unavailable [phone] Ken Warner MD Unavailable [phone] Source Comments [facility],non-owned Affiliates and Associated Physician Practices is amultiple site organization consisting of ambulatory clinics and hospital sitesin [place], [place], [place] and [place]. This disclosure is being madepursuant to the Care Everywhere program and may not contain all information available regarding this patient. Last updated 18.[facility] Allergies Active Allergy Reactions Criticality Noted Date Comments Aspirin Buffered 02/04/2012 Medications * Be aware that medications may not be up to date on this document. Alwaysverify current medications with the patient. Multiple Vitamins-Minera ls (MULTIVITAMIN & MINERAL PO) Take by mouth once daily. Active omeprazole (PRILOSEC) 40 MG capsule 2 06/30/19 16 Active influenza quadrivalent vac (AFLURIA QUAD) 0.5 ML injection ADM 0.5ML IM UTD 0 04/17/20 18 Active BOOSTRIX 5-2.5-18.5 LF-MCG/0.5 (7y+) injection ADM 0.5ML IM UTD 0 04/17/20 18 Active RESTASIS 0.05 % ophthalmic suspension INSTILL 1 DROP INTO BOTH EYES BID 3 09/13/19 19 Active ALPRAZolam (XANAX) 0.25 MG tablet TK 1 T PO TID PRF ANXIETY 09/16/19 20 Active fluticasone propionate (FLONASE) 50 MCG/ACT nasal spray SHAKE LIQUID AND USE 2 SPRAYS IN EACH NOSTRIL TWICE DAILY 01/28/20 21 Active b-complex-c capsule Take 1 (one) capsule by mouth once daily 02/10/20 21 Active escitalopram (LEXAPRO) 20 MG tablet Take 20 mg by mouth once daily 01/28/20 21 Active topiramate (Topamax) 25 MG tablet Take 2 (two) tablets by mouth once daily Take in the afternoon - evening hrs 180 tablet 3 05/01/20 22 Active Cholecalciferol (Vitamin D3) 25 MCG (1000 UT) Take 1 (one) capsule by mouth once daily 90 capsule 3 10/16/19 23 Active rosuvastatin (Crestor) 20 MG tablet Take 1 (one) tablet by mouth once daily 06/07/20 23 Active levothyroxine (Synthroid) 137 MCG tabletIndicatio ns:Hypothyroidi sm, postablative TAKE 1 TABLET BY MOUTH EVERY DAY FOR UNDERACTIVE THYROID 90 tablet 1 04/26/20 25 Active levothyroxine (Synthroid) 137 MCG tabletIndicatio ns:Hypothyroidi sm TAKE 1 (ONE) TABLET BY MOUTH ONCE DAILY REASONS: UNDERACTIVE THYROID 30 tablet 03/22/20 25 025 Discontinued Active Problems Problem Noted Date Diagnosed Date GERD (gastroesophageal reflux disease) 6 Pre-diabetes 08/31/2015 Dysphagia 08/23/2014 Weight gain 08/23/2014 Hypothyroidism, postablative 02/04/2012 Overview (08/31/2015): S/p SIMMS therapy 2002 Resolved Problems Problem Noted Date Diagnosed Date Resolved Date Diabetes mellitus type I 08/23/2016 Hyperthyroidism 02/04/2012 08/31/2015 Overview (02/04/2012): S/p SIMMS 131 therapy 2002 Hypothyroidism 01/23/2012 02/04/2012 Overview (03/17/2015): Encounters Date Type Department Care Team Description 04/23/2025 Refill [facility] - Endocrinology [id number] [facility], [address] [address] Bryanna Washington, IMMIGRATION LAWYER-CODING SUPPORT SPECIALIST Med Change Request 03/20/2025 Refill [facility] Medical [facility] - Endocrinology [address] [facility], [address] [place] [address] Dionna Kc MD Refill Request from Last 3 Months Family History Medical History Relation Name Comments [...] drink = 0.6 oz pur e alcohol) Comments No Sex and Gender Information Value Date Recorded Sex Assigned at Not on file Legal Sex Female 1:26 PM SLIDE MACHINE TENDER Gender Identity Not on file Sexual Orientation Not on file Last Filed Vital Signs Vital Sign Reading Time Taken Comments Blood Pressure 125/63 12/24/2022 2:25 PM CDT Pulse 82 05/01/2022 1:03 PM SLIDE MACHINE TENDER Temperature 36.4 C (97.5 F) 02/09/2021 9:33 AM CDT Respiratory Rate 20 02/09/2021 9:33 AM CDT Oxygen Saturation 97% 05/01/2022 1:03 PM SLIDE MACHINE TENDER Inhaled Oxygen Concentration - - Weight 88.9 kg (196 lb) 12/24/2022 2:25 PM CDT Height 165.1 cm (5' 5) 12/24/2022 2:25 PM CDT Body Mass Index 32.62 12/24/2022 2:25 PM CDT Plan of Treatment Health Maintenance Due Date Last Done Comments [...] Tdap) 1981 PNEUMOCOCCAL VACCINE 50+ (1 of 1 - PCV) 01/12/2012 ZOSTER VACCINE (1 of 2) 01/12/2012 DIABETES-FOOT EXAM WITH MONOFILAMENT 08/30/2016 DIABETES-HGB A1C 12/26/2021 06/28/2021 DIABETES-SERUM CREATININE 06/28/20222021, 01/12/2021, 11/27/2019, Additional history exists DEPRESSION SCREENING 06/17/2024 DIABETES - URINE PROTEIN SCREENING 06/17/2024 06/28/2021 DIABETES RETINOPATHY SCREENING 06/28/2024 06/28/2022, 06/22/2021, 09/12/2018 COVID-19 VACCINE ( - season) 2025 INFLUENZA VACCINE (#1) 2025 Respiratory Syncytial Virus (RSV) Vaccine Pt: or over 60 yrs (1 - 1-dose 75+ series) 2037 HEPATITIS B VACCINE Aged Out No longe r eligible based on patient's age to complete this topic HIB VACCINE Aged Out No longer eligi ble based on patient's age to complete this topic HPV VACCINE Aged Out No longer eligi ble based on patient's age to complete this topic MENINGOCOCCAL (Group B) VACCINE SHARED DECISION-MAKING Aged Out No longer eligible based on patient's age to complete this topic MENINGOCOCCAL GROUPS A/C/Y/W VACCINE Aged Out No longer eligible based on patient's age to complete this topic Procedures Procedure Name Priority Date/Time Associated Diagnosis Comments DIABETES EYE EXAM Routine 06/28/2022 MICROALB/CREAT RATIO URINE RANDOM PANEL 06/28/2021 7:18 AM SLIDE MACHINE TENDER COMPREHENSIVE METABOLIC PANEL 06/28/2021 7:18 AM SLIDE MACHINE TENDER HEMOGLOBIN A1C 06/28/2021 7:18 AM SLIDE MACHINE TENDER from Last 3 Months or Most Recently Relevant to Health Maintenance Results * DIABETES EYE EXAM (06/28/2022) us Dionna Kc MD HEALTH MAINTENANCE Final Result * MICROALB/CREAT RATIO URINE RANDOM PANEL (06/28/2021 7:18 AM SLIDE MACHINE TENDER) Pathologist [facility] Creatinine Urine 134 20 - 275 mg/dL [...] within a diagnostic category. Test Performed at: [facility] [address] [place] [address] EDGAR CLARK DO,MPH 06/28/2021 7:18 AM SLIDE MACHINE TENDER 06/28/2021 7:20 AM SLIDE MACHINE TENDER Dionna Kc MD LAB - URINE CHEMISTRY OR DERABLES Final Result Performing Organization Address [facility] de Phone Number [address] [address] * (ABNORMAL) HEMOGLOBIN A1C (06/28/2021 7:18 AM SLIDE MACHINE TENDER) [facility] Hemoglobin A1c 5.9(H) <5.7 % of total Hgb [facility] Comment: REPORT COMMENT: FASTING:YES Test Performed at: [facility] [address] SARWAT ANGELES MD 06/28/2021 7:18 AM SLIDE MACHINE TENDER 06/28/2021 7:20 AM SLIDE MACHINE TENDER Dionna Kc MD LAB - CHEMISTRY ORDERABL ES Final Result Performing Organization Address [facility] Co de Phone Number [address] [address] * (ABNORMAL) COMPREHENSIVE METABOLIC PANEL (06/28/2021 7:18 AM SLIDE MACHINE TENDER) Pathologist [facility] Glucose 108(H) 65 - 99 mg/dL [facility] [...] approximately 13% higher for people identified as -[place]. eGFR by MDRD 97 > OR = [...] 29 U/L [facility] Comment: Test Performed at: [facility] [address] [place] [address] EDGAR CLARK DO,MPH 06/28/2021 7:18 AM SLIDE MACHINE TENDER 06/28/2021 7:20 AM SLIDE MACHINE TENDER us Dionna Kc MD LAB - CHEMISTRY ORDERABL ES Final Result [facility] [id number] [place] [address] from Last 3 Months or Most Recently Relevant to Health Maintenance Insurance [employer] [facility] [place] [address] Care Teams Classroom Teacher Relationship Specialty Start Date End Date Chao Nelson MD [address] [place] [id number] PCP - General 02/04/12 [place] [id number] [address] Endocrinology 08/30/16 Ken Warner MD [address] [facility] [address] [place] [address] Obstetrics and Gynecology 05/27/19
[2025-05-01 10:36] LABS: Alanine Aminotransferase 14 U/L (6-35); Albumin Level 4.3 g/dL (3.5-5.1); Alkaline Phosphatase 88 U/L (38-126); Anion Gap 8 mmol/L (4-12); Aspartate Amino Transferase 24 U/L (14-36); Blood Urea Nitrogen 14 mg/dL (7-17); Calcium 9.7 mg/dL (8.4-10.2); Carbon Dioxide 29 mmol/L (22-30); Chloride 107 mmol/L (98-107); Estimated CRCL calculation 70 ml/min; Estimated Glomerular Filt Rate > 60; Glucose 107 mg/dL (65-110); Osmolality Calculated 298 mOsm/kg (285-295); Potassium 3.5 mmol/L (3.4-5.0); Sodium 144 mmol/L (137-145); Total Protein 7.0 g/dL (6.3-8.2)
[2025-05-01 11:03] LABS: INR 0.9; Prothrombin Time 10.5 Seconds (9.50-12.1)
[2025-05-01 12:27] LABS: Iron 29 ug/dL (37-170)
[2025-05-01 12:28] LABS: Magnesium 2.2 mg/dL (1.6-2.3)
[2025-05-01 12:36] LABS: Percent Iron Saturation 7 % (20-50)
[2025-05-01 13:04] LABS: Ferritin 4.90 ng/mL (11.1-264)
[2025-05-04 16:19] LABS: Bilirubin,Total 0.2 mg/dL (0.2-1.3)
== END 2025-05-01 11:13 | disposition home or self-care (01) ==
PROVIDERS: Emergency Provider Family Medicine; PCP Family Medicine
DX: D50.9 Iron deficiency anemia, unspecified (principal); E03.9 Hypothyroidism, unspecified; E11.9 Type 2 diabetes mellitus without complications; E78.5 Hyperlipidemia, unspecified
CPT/HCPCS: 36415; 80053; 82728; 83540; 83550; 83735; 85025; 85055; 85610; 86850; 86900; 86901; 93005; 99283

== ENCOUNTER 2025-05-03 12:22 | Outpatient (CLI) | payer OTHER, SELFPAY ==
--- NOTE | ~2025-05-03 | CT_ITS ---
EXAM/PROCEDURE: CT chest abdomen pelvis wo con HISTORY: K44.9 - Diaphragmatic hernia without obstruction or gangrene COMPARISON: None available. TECHNIQUE: Noncontrast CT of the chest abdomen and pelvis performed FINDINGS: Scattered fibrotic and atelectatic changes in the lungs which are otherwise clear. 6 mm lung nodule seen on the previous exam not seen on today's exam. The lungs are otherwise clear. Heart and great vessels stable, normal size. No pericardial effusion or bulky lymphadenopathy seen. Moderate-sized hiatal hernia mildly increased in size from the previous exam. The bony thorax appears intact. Within the abdomen and pelvis, the bowel gas pattern is nonobstructive with no free air free fluid or pneumatosis seen. Moderately severe sigmoid diverticular disease with no gross acute diverticulitis. No grossly inflamed appendix or AAA. No hydroureteronephrosis or urolithiasis seen. Close cystectomy clips. Patient may be status post hysterectomy. 5.3 x 5.1 cm mass left adnexal region image 2 7 series 3. No bulky lymphadenopathy seen. Adrenal glands spleen pancreas stomach and liver appear stable for technique. Diffuse degenerative changes throughout the bones which otherwise appear intact. IMPRESSION: 1. 5.3 x 5.1 cm left adnexal mass. Correlation with pelvic ultrasound recommended. No acute surgical abnormality identified. 2. Moderate size hiatal hernia. Reviewed, dictated and finalized at location A. CARRIER IMPRESSION: 1. 5.3 x 5.1 cm left adnexal mass. Correlation with pelvic ultrasound recommend ed. No acute surgical abnormality identified. 2. Moderate size hiatal hernia.
== END 2025-05-03 12:23 | disposition home or self-care (01) ==
LOC: CHSIMG 12:24
PROVIDERS: PCP Family Medicine; Visit Provider Nurse Practitioner Adult Health
DX: D64.9 Anemia, unspecified (principal); D50.9 Iron deficiency anemia, unspecified; D52.9 Folate deficiency anemia, unspecified; E83.42 Hypomagnesemia; K21.00 Gastro-esophageal reflux disease with esophagitis, without bleeding; K44.9 Diaphragmatic hernia without obstruction or gangrene; R19.09 Other intra-abdominal and pelvic swelling, mass and lump
CPT/HCPCS: 71250; 74176

== ENCOUNTER 2025-05-04 07:19 | Outpatient (CLI) | payer OTHER, SELFPAY ==
--- NOTE | ~2025-05-04 | US_ITS ---
EXAMINATION: US transvaginal, 05/04/2025 7:45 FRONT END JAVA DEVELOPER HISTORY: N94.89 - Other specified conditions associated with femal... Comparison: None Technique: Álvarez-scale and color Doppler images were obtained. Findings: Uterus: Post hysterectomy. . Right Ovary:Right ovary 2 x 2 0.5 x 2.7 cm, no adnexal mass, normal flow. Left Ovary: The left ovary is replaced by a complex cystic septated lesion with areas of nodularity measuring 5 x 5.6 x 3.7 cm. 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 Contrast-enhanced MRI is recommended Reviewed, dictated and finalized at location P. 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 Contrast-enhanced MRI is recommended
[2025-05-04 07:38] LABS: Hematocrit 29.4 % (35.0-49.0); Hemoglobin 7.7 g/dL (12.0-15.0); Immature Granulocyte Percent A 0.3 % (0.0-0.0); Immature Platelet Fraction Pct 1.1 % (1.0-7.0); Immature Reticulocyte Fraction 23.5 % (2.0-16.52); Lymphocytes Absolute Auto 1.38 K/mm3 (1.10-4.50); Mean Corpuscular HGB Conc 26.2 g/dL (32-36); Mean Corpuscular Hemoglobin 16.8 pg (27.0-31.0); Mean Corpuscular Volume 64.1 fL (78.0-102.0); Nucleated Red Blood Cells Absolute Auto 0.00 K/mm3 (0.00-0.00); Nucleated Red Blood Cells Perc 0.0 % (0-0.0); Platelet Count Result 589 K/mm3 (150-420); Red Blood Count 4.59 M/mm3 (4.20-5.40); Reticulocyte Hemoglobin Conten 19.8 pg (28.0-35.0); Reticulocytes Absolute 0.10 M/mm3 (0.02-0.10); White Blood Count 7.1 K/mm3 (4.8-10.8)
[2025-05-04 08:34] LABS: Iron 50 ug/dL (37-170)
[2025-05-04 08:35] LABS: Anion Gap 9 mmol/L (4-12); Blood Urea Nitrogen 10 mg/dL (7-17); Calcium 10.1 mg/dL (8.4-10.2); Carbon Dioxide 31 mmol/L (22-30); Chloride 105 mmol/L (98-107); Estimated Glomerular Filt Rate > 60; Glucose 123 mg/dL (65-110); Magnesium 2.1 mg/dL (1.6-2.3); Osmolality Calculated 300 mOsm/kg (285-295); Potassium 3.9 mmol/L (3.4-5.0); Sodium 145 mmol/L (137-145)
[2025-05-04 08:43] LABS: Percent Iron Saturation 12 % (20-50)
[2025-05-04 09:10] LABS: Ferritin 6.11 ng/mL (11.1-264)
== END 2025-05-04 07:20 | disposition home or self-care (01) ==
LOC: CHSIMG 07:21
PROVIDERS: PCP Family Medicine; Visit Provider Nurse Practitioner Adult Health
DX: E11.9 Type 2 diabetes mellitus without complications (principal); R53.83 Other fatigue; D50.9 Iron deficiency anemia, unspecified; E83.42 Hypomagnesemia; D64.9 Anemia, unspecified; D52.9 Folate deficiency anemia, unspecified; N94.89 Other specified conditions associated with female genital organs and menstrual cycle; R19.5 Other fecal abnormalities; R93.89 Abnormal findings on diagnostic imaging of other specified body structures
CPT/HCPCS: 36415; 76830; 80048; 82728; 82746; 83540; 83550; 83735; 85025; 85046; 85055

== ENCOUNTER 2025-05-07 03:43 | Day surgery (SDC) | payer OTHER, SELFPAY ==
[2025-05-06 12:35] VITALS: BMI 31.7
[2025-05-07 08:13] VITALS: BP 119/83; PULSE 85; RESP 16; TEMP 36.7; O2SAT 100; BMI 31.1
[2025-05-07] MEDS: LACTATED RINGERS 1,000 ML 150 ML IV CONT (08:25)
--- NOTE | 2025-05-07 09:04 | P.PNAN_ITS ---
Anes - Initial Pre Proc Eval Procedure: Operation Date: 05/07/25 09:30 Proposed Procedures p EGD & Diagnostic Colonoscopy - Guille Lobato MD Date/Time: 05/07/25 09:04 Surgeon: Guille Lobato MD Pre Op Diagnosis: Folate deficiency anemia, unspecified Patient Data Age: 65 Gender: F Height: 1.65 m Weight: 84.8 kg Last Vital Signs Temp 98.1 F 05/07/25 08:13 Pulse 85 05/07/25 08:13 Resp 16 05/07/25 08:13 BP 119/83 05/07/25 08:13 Pulse Ox 100 05/07/25 08:13 O2 Del Method Room Air 05/07/25 08:13 Allergies Allergy/AdvReac Type Severity Reaction Status Date / Time salicylates Allergy Intermediate Hives Verified 05/07/25 08:11 aspirin Allergy Unknown Unknown Verified 05/07/25 08:11 Home Medications ?Medication ?Instructions ?Recorded ?Confirmed ?Type levothyroxine 137 mcg tablet 137 mcg PO DAILY #30 tabs 06/26/22 05/07/25 Rx (Synthroid) rosuvastatin 20 mg tablet (Crestor) 20 mg PO DAILY #90 tabs 01/14/25 05/07/25 Rx alprazolam 0.25 mg tablet (Xanax) 0.25 mg PO TID PRN a nxiety #30 tabs 01/15/25 05/07/25 Rx escitalopram oxalate 20 mg tablet 20 mg PO DAILY #90 t abs 04/26/25 05/07/25 Rx (Lexapro) ferrous sulfate 325 mg (65 mg 325 mg PO DAILY #30 tabs 04/27/25 05/06/25 Rx iron) tablet,delayed release folic acid 1 mg tablet 1 mg PO DAILY #14 tabs 04/2705/06/25 Rx cholecalciferol (vitamin D3) 125 125 mcg PO DAILY #30 caps 04/28/25 05/07/25 Rx mcg (5,000 unit) capsule famotidine 40 mg tablet (Pepcid) 40 mg PO DAILY PRN wo rsening GERD 04/28/25 05/06/25 Rx #30 tabs magnesium oxide 300 mg PO DAILY #30 tabs 06/1005/07/25 Rx omeprazole 40 mg capsule,delayed 40 mg PO DAILY #30 ca ps 04/28/25 05/07/25 Rx release hydrocortisone acetate 25 mg 25 mg RECTAL BID PRN hemo rrhoids 05/06/25 05/06/25 History rectal suppository (Anusol-HC) Patient hx anesthesia problems: none Family hx anesthesia problems: none Results Review: All pre-operative results and documents have been reviewed as part of the pre- operative evaluation. [facility] Past Medical History Medical History Ovarian mass, left Positive occult stool blood test Adnexal mass Hiatal hernia with GERD and esophagitis Vitamin D deficiency Hypomagnesemia Anemia, folate deficiency Iron deficiency anemia Fatigue BMI greater than 30 BMI 32.0-32.9,adult Adult BMI 37.0-37.9 kg/sq m Family History Family History Sibling Family history of coronary artery disease Father Family history of malignant neoplasm of urinary bladder Other Family history of arthritis Social History Social History Smoking status: Never smoker Alcohol intake: never Substance use: never Substance use type: does not use Do You Feel Safe in your Home?: Yes Lack of Transportation: No Lack of Food: Never True Current Housing: I Have Housing Concerned About Future Housing: No Difficulty Paying Gas/Electric Bills: No Difficulty Paying for Meds: No Currently Unemployed: No Education: High School Diploma/GED Difficulty w/ Childcare or Family Care: No Living arrangements: with family Occupation/Education: occupation Gender identity (if verbalized by the patient): Female Spiritual care concerns: No Anes - Eval Final PreProcedure Day of Procedure 05/07/25 09:04 Patient weight: obese Lungs: normal air movement Airway: Mallampati scale class II Neurological: alert and oriented Last oral intake: >/= 8 hours ASA classification: II Emergent: no Anesthetic plan: proceed Anesthesia type and monitoring: general GIVS and standard monitoring Results Review: All pre-operative results and documents have been reviewed as part of the pre- operative evaluation. BMI 31, hyperlipidemia, hypothyroidism. Informed Consent: The patient's anesthetic plan and its attendant risks and benefits were discussed with the patient/family/POA. Questions were solicited and answers pr ovided to the satisfaction of the patient/family/POA.
--- NOTE | 2025-05-07 09:39 | PM.HPGS ---
History of Present Illness History of Present Illness Consent: Risks, benefits, and alternatives have been discussed and questions answered. Patient agrees to proceed with procedure. Chief complaint: Folate deficiency anemia, unspecified Narrative: Lin Kwan is a 65 year old female with frances, denies overt gib, had egd/colonoscopy 2022 Review of Systems Review of Systems: All systems reviewed & are unremarkable except as noted in HPI and below PMFSH Past Medical History Medical History Ovarian mass, left Positive occult stool blood test Adnexal mass Hiatal hernia with GERD and esophagitis Vitamin D deficiency Hypomagnesemia Anemia, folate deficiency Iron deficiency anemia Fatigue BMI greater than 30 BMI 32.0-32.9,adult Adult BMI 37.0-37.9 kg/sq m Family History Family History Sibling Family history of coronary artery disease Father Family history of malignant neoplasm of urinary bladder Other Family history of arthritis Social History Social History Smoking status: Never smoker Alcohol intake: never Substance use: never Substance use type: does not use Do You Feel Safe in your Home?: Yes Lack of Transportation: No Lack of Food: Never True Current Housing: I Have Housing Concerned About Future Housing: No Difficulty Paying Gas/Electric Bills: No Difficulty Paying for Meds: No Currently Unemployed: No Education: High School Diploma/GED Difficulty w/ Childcare or Family Care: No Living arrangements: with family Occupation/Education: occupation Gender identity (if verbalized by the patient): Female Spiritual care concerns: No Meds Home Medications and Allergies Home Medications ?Medication ?Instructions ?Recorded ?Confirmed ?Type levothyroxine 137 mcg tablet 137 mcg PO DAILY #30 tabs 06/26/22 05/07/25 Rx (Synthroid) rosuvastatin 20 mg tablet (Crestor) 20 mg PO DAILY #90 tabs 01/14/25 05/07/25 Rx alprazolam 0.25 mg tablet (Xanax) 0.25 mg PO TID PRN anxiety #30 tabs 01/15/25 05/07/25 Rx escitalopram oxalate 20 mg tablet 20 mg PO DAILY #90 tabs 04/26/25 05/07/25 Rx (Lexapro) ferrous sulfate 325 mg (65 mg 325 mg PO DAILY #30 tabs 04/27/25 05/06/25 Rx iron) tablet,delayed release folic acid 1 mg tablet 1 mg PO DAILY #14 tabs 04/27/25 05/06/25 Rx cholecalciferol (vitamin D3) 125 125 mcg PO DAILY #30 caps 04/28/25 05/07/25 Rx mcg (5,000 unit) capsule famotidine 40 mg tablet (Pepcid) 40 mg PO DAILY PRN worsening GERD 04/28/25 05/06/25 Rx #30 tabs magnesium oxide 300 mg PO DAILY #30 tabs 04/28/25 05/07/25 Rx omeprazole 40 mg capsule,delayed 40 mg PO DAILY #30 caps 04/28/25 05/07/25 Rx release hydrocortisone acetate 25 mg 25 mg RECTAL BID PRN hemorrhoids 05/06/25 05/06/25 History rectal suppository (Anusol-HC) Allergies Allergy/AdvReac Type Severity Reaction Status Date / Time salicylates Allergy Intermediate Hives Verified 05/07/25 08:11 aspirin Allergy Unknown Unknown Verified 05/07/25 08:11 Vital Signs Vital Signs - 24 hr 05/07/25 08:13 Temperature 98.1 F Pulse Rate 85 Respiratory Rate 16 Blood Pressure 119/83 Pulse Oximetry 100 Oxygen Delivery Room Air Exam Const: General: comfortable and no acute distress HENMT: Face/Nose/Sinus: Normal nares present Eyes: General: appearance normal, both eyes and all related structures Neck: Neck: no JVD Resp: Auscultation: clear to auscultation bilaterally Cardio: Rate: regular rate Rhythm: regular rhythm GI: Inspection: non-distended GI Palp: Yes Soft to palpation Skin: General skin exam: normal color Extrem: General: normal to inspection Psych: Mental Status: mental status grossly normal Assessment and Plan Assessment and plan (1) Iron deficiency anemia: Code(s): D50.9 - Iron deficiency anemia, unspecified Status: Acute Assessment and Plan: egd and colonoscopy to assess if gi source of anemia
--- NOTE | 2025-05-07 09:46 | S_PTH ---
PATIENT: Lin Kwan LOC: [facility]#:[id number] AGE/SX: 65/F ROOM: RE05/07/[address]: Guille Lobato MD : 1960 BED: DIS: 05/07/2025 SPEC #: [id number] RECD: 05/07/25 12:50 STATUS: YESSENIA EARL #: [id number] BEREKET: 05/07/25 09:[address]: Guille Lobato DEPT: [facility] Surgical RECD BY: Yanet Lopez ENTERED: 05/07/25 12:51 SP TYPE: Surgical OTHR DR: Chao Nelson MD Tissues: A - Gastric Biopsy B - Small Bowel Bx C - Colon Polypectomy Procedures: Hematoxylin and Eosin Stain Gross and Microscopic Level 4
--- NOTE | 2025-05-07 09:54 | SUR.OPER ---
egd ended at 947 and colon started at 952
[2025-05-07 10:07] VITALS: BP 112/56; PULSE 80; RESP 23; O2SAT 100
[2025-05-07 10:17] VITALS: BP 110/60; PULSE 80; RESP 21; O2SAT 100
[2025-05-07 10:27] VITALS: BP 116/59; PULSE 68; RESP 17; O2SAT 100
== END 2025-05-07 10:36 | disposition home or self-care (01) ==
PROVIDERS: PCP Family Medicine; Referring Provider Nurse Practitioner Adult Health; Visit Provider Internal Medicine Gastroenterology
PROC: 0DJ08ZZ Inspection of Upper Intestinal Tract, Via Natural or Artificial Opening Endoscopic (ICD-10-PCS; CPT 45378; principal; 2025-05-07 09:30)
DX: D50.9 Iron deficiency anemia, unspecified (principal); D12.4 Benign neoplasm of descending colon; K64.8 Other hemorrhoids; K57.30 Diverticulosis of large intestine without perforation or abscess without bleeding; K22.2 Esophageal obstruction; K44.9 Diaphragmatic hernia without obstruction or gangrene; E78.5 Hyperlipidemia, unspecified; E03.9 Hypothyroidism, unspecified; K21.9 Gastro-esophageal reflux disease without esophagitis; E55.9 Vitamin D deficiency, unspecified; R53.83 Other fatigue; D52.9 Folate deficiency anemia, unspecified; E66.9 Obesity, unspecified; Z68.31 Body mass index [BMI] 31.0-31.9, adult; Z80.52 Family history of malignant neoplasm of bladder; Z82.49 Family history of ischemic heart disease and other diseases of the circulatory system
CPT/HCPCS: 43239; 43249; 45385; 88305; C1726; J2003; J2704; J7120

== ENCOUNTER 2025-06-07 06:05 | Outpatient (CLI) | payer OTHER, SELFPAY ==
--- NOTE | 2025-05-31 12:09 | PC.NURSE ---
PRE OP call completed no major updates to history from 05/07/25
--- NOTE | 2025-06-07 06:45 | SUR.OPER ---
Patient brought to GI Lab. Instructions for patient undergoing Capsule Endoscopy reviewed with patient. Consent form signed. Sensor array applied to patient's abdomen and connected to recorded. Patient swallowed capsule with 2 cups of water infused with Simethicone. Patient instructed they may have clear liquids at 0830 this AM and eat or drink at 1030 this AM. Patient instructed to return to GI Lab at 1500 this afternoon for removal of recording device and to call [phone] or to return to the hospital if any nausea and vomiting or abdominal pain is experienced.
--- NOTE | 2025-06-07 14:17 | SUR.PREOP ---
Patient returned to the GI Lab at 1424 for recorder box removal. Patient voiced no complaints. States they have understanding of instructions. Patient left ambulatory.
== END 2025-06-07 06:06 | disposition home or self-care (01) ==
LOC: ANHENDO 06:05
PROVIDERS: PCP Family Medicine; Referring Provider Internal Medicine Gastroenterology; Visit Provider Internal Medicine Gastroenterology
PROC: (CPT 91110; principal; 2025-06-07 07:00)
DX: D50.9 Iron deficiency anemia, unspecified (principal)
CPT/HCPCS: 91110